=== PATIENT | male | born 1970 | race Caucasian/White ===

== ENCOUNTER 2017-02-21 16:40 | Inpatient (IN) | payer OTHER ==
[~2017-02-21] VITALS: Ht 177.8 cm; Wt 92.4 kg
[2017-02-21 16:40] VITALS: BP 118/79; PULSE 71; RESP 16; TEMP 98.1; O2SAT 96
[2017-02-21 16:50] VITALS: O2SAT 97
[2017-02-21] MEDS ORDERED: IODIXANOL 320 MG/ML 50 ML VIAL (for Rad CT) IV ONE (16:51)
[2017-02-21] MEDS ORDERED: SODIUM CHLOR 0.9% 1000 ML INJ 1,000 ML IV ONE (16:53)
[2017-02-21 17:03] LABS: AUTOMATED NEUTROPHIL # 2.3 TH/MM3 (1.8-7.7); BASOPHIL # 0.1 TH/MM3 (0-0.2); BASOPHIL % 1.1 % (0.0-2.0); EOSINOPHIL # 0.1 TH/MM3 (0-0.4); EOSINOPHIL % 1.6 % (0.0-4.0); HEMO FLAGS DIFF FINAL; LYMPH % 41.6 % (9.0-44.0); LYMPHOCYTE # 2.1 TH/MM3 (1.0-4.8); MEAN CELL VOLUME 92.1 FL (80.0-100.0); MEAN CORPUSCULAR HGB CONC 34.7 % (32.0-36.0); MONO % 11.2 % (0.0-8.0); NEUT % 44.5 % (16.0-70.0); PLATELET COUNT 216 TH/MM3 (150-450); RED BLOOD COUNT 4.77 MIL/MM3 (4.50-5.90); WHITE BLOOD COUNT 5.1 TH/MM3 (4.0-11.0)
[2017-02-21 17:07] LABS: I-STAT POTASSIUM 3.6 MMOL/L (3.5-4.9); I-STAT SODIUM 143 MMOL/L (138-146)
[2017-02-21 17:11] LABS: APTT (PATIENT) 25.8 SEC (24.3-30.1); INTERNATIONAL NORMALIZED RATIO 0.9 RATIO; PROTHROMBIN TIME - PATIENT 10.2 SEC (9.8-11.6)
--- NOTE | 2017-02-21 17:12 | RADRPT ---
EXAM DATE/TIME: 02/21/2017 16:51 [facility] COMPARISON: No previous studies available for comparison. INDICATIONS : Stroke alert. Left sided weakness, confusion. RADIATION DOSE: 49.31 CTDIvol (mGy) This report was called by Dr. Truong to Dr. Estrada at 1709 MEDICAL HISTORY : Non-responsive. SURGICAL HISTORY : Non-responsive. ENCOUNTER: Initial ACUITY: 1 day PAIN SCALE: 0/10 LOCATION: cranial TECHNIQUE: Multiple contiguous axial images were obtained of the head. Using automated exposure control and adj ustment of the mA and/or kV according to patient size, radiation dose was kept as low as reasonably a chievable to obtain optimal diagnostic quality images. FINDINGS: CEREBRUM: The ventricles are normal for age. No evidence of midline shift, mass lesion, hemorrhage or acute in farction. No extra-axial fluid collections are seen. POSTERIOR FOSSA: The cerebellum and brainstem are intact. The 4th ventricle is midline. The cerebellopontine angle i s unremarkable. EXTRACRANIAL: The visualized portion of the orbits is intact. SKULL: The calvaria is intact. No evidence of skull fracture. CONCLUSION: Normal examination. Aditya Truong MD on February 21, 2017 at 17:06 Board Certified Radiologist. This report was verified electronically.
--- NOTE | 2017-02-21 17:28 | RADRPT ---
EXAM DATE/TIME: 02/21/2017 16:51 [facility] COMPARISON: No previous studies available for comparison. INDICATIONS : Stroke alert-left sided weakness. IV CONTRAST: 50 cc Visipaque (iodixanol) IV RADIATION DOSE: 28.65 CTDIvol (mGy) ; Combined studies MEDICAL HISTORY : Non-responsive. SURGICAL HISTORY : Non-responsive. ENCOUNTER: Initial ACUITY: 1 day PAIN SCALE: Non-responsive LOCATION: Bilateral cranial TECHNIQUE: Volumetric scanning was performed using a multi-row detector CT scanner. The data was post processed with a variety of visualization algorithms including full volume maximum intensity projection, multi -planar sliding thin slab reformation, curved planar reformation, and surface rendering techniques. Using automated exposure control and adjustment of the mA and/or kV according to patient size, radiat ion dose was kept as low as reasonably achievable to obtain optimal diagnostic quality images. FINDINGS: There is excellent visualization of the major intracranial arteries out to the second-order branch ve ssels. There is no evidence for aneurysm, vessel truncation or stenosis, and no evidence for vascula r malformation. Specifically, there is no endovascular target for revascularization in the setting of acute stroke CONCLUSION: Negative exam. Findings were reported to Dr. Estrada upon interpretation Piotr Page MD on February 21, 2017 at 17:23 Board Certified Radiologist. This report was verified electronically.
[2017-02-21] MEDS ORDERED: ALTEPLASE DRIP IV ONE (17:30)
[2017-02-21] MEDS ORDERED: MISCELLANEOUS NURSING INFORMATION XX PRN (17:30)
[2017-02-21] MEDS ORDERED: SODIUM CHLORIDE 0.9% 50 ML BAG IVF ONE (17:30)
[2017-02-21] MEDS ORDERED: ALTEPLASE BOLUS 9 MG/9 ML SYR IV ONE (17:30)
--- NOTE | 2017-02-21 17:47 | PD ---
HPI Chief Complaint: Stroke Alert Time Seen by Provider: 16:53 Travel History International Travel<30 days: No Contact w/Intl Traveler<30days: No Traveled to known affect area: No History of Present Illness HPI This is a 47-year-old gentleman with history depression, homelessness, who presents as a stroke alert. The patient was last seen normal at 1600 hrs. When he arrived he was within the first hour of presentation. The patient presents with left sided facial droop, slurred speech, left upper and left lower extremity weakness/paralysis. The patient denies any previous history of stroke. He denies any trauma. He does report drinking alcohol daily but does not appear intoxicated on my examination. He is awake and appropriate other than the above findings. [facility] Social History Tobacco Use: Yes Allergies-Medications (Allergen,Severity, Reaction): Coded Allergies: No Known Allergies (Unverified , 02/21/17) Review of Systems Except as stated in HPI: all other systems reviewed are Neg General / Constitutional: No: Fever, Chills Eyes: No: Blurred Vision, Photophobia HENT: No: Headaches, Neck Pain Cardiovascular: No: Chest Pain or Discomfort, Palpitations Respiratory: No: Cough, Shortness of Breath Gastrointestinal: No: Nausea, Vomiting, Abdominal Pain Musculoskeletal: No: Weakness, Pain Neurologic: Positive: Weakness (left upper and left lower extremity), Slurred Speech, Other (left sided facial droop), No: Headache Psychiatric: Positive: Depression (history of) Physical Exam Narrative GENERAL: Well-developed well-nourished male in no acute respiratory distress. SKIN: Focused skin assessment warm/dry. HEAD: Atraumatic. Normocephalic. EYES: No scleral icterus. No injection or drainage. ENT: No nasal bleeding or discharge. Mucous membranes pink and moist. NECK: Trachea midline. No JVD. CARDIOVASCULAR: Regular rate and rhythm. No murmur appreciated. RESPIRATORY: No accessory muscle use. Clear to auscultation. Breath sounds equal bilaterally. GASTROINTESTINAL: Abdomen soft, non-tender, nondistended. MUSCULOSKELETAL: No obvious deformities. No clubbing. No cyanosis. No edema. There is a healing abrasion to his left montalvo. NEUROLOGICAL: Awake and alert. Patient with left sided facial droop. She also has 1/5 strength in the left upper extremity and 0/5 strength in the left lower extremity. He has dysarthria. He is able to answer questions. His NIH stroke scale is 15. PSYCHIATRIC: Appropriate mood and affect; insight and judgment normal. Data Data Last Documented VS Vital Signs Date Time Temp Pulse Resp B/P Pulse Ox O2 Delivery O2 Flow Rate FiO2 02/21/17 16:50 97 21 02/21/17 16:40 71 17 Room Air 02/21/17 16:40 2 Orders Diet Npo (02/21/17 Dinner) Activity Bed Rest (02/21/17 ) Electrocardiogram (02/21/17 ) I-Stat Creatinine (02/21/17 16:53) I-Stat Profile (02/21/17 16:53) Prothrombin Time / Inr (Pt) (02/21/17 16:53) Act Partial Throm Time (Ptt) (02/21/17 16:53) Complete Blood Count With Diff (02/21/17 16:53) Fibrinogen (02/21/17 16:53) Creatine Kinase (Cpk) (02/21/17 16:53) Troponin I (02/21/17 16:53) Ua Includes Microscopic (02/21/17 16:53) Drug Screen, Random Urine (02/21/17 16:53) Type And Screen (02/21/17 16:53) Ct Brain W/O Iv Contrast(Rout) (02/21/17 ) Cta Brain W Iv Contrast W 3d (02/21/17 16:53) Consult Neurology (02/21/17 ) Blood Glucose (02/21/17 16:53) Ecg Monitoring (02/21/17 16:53) Neuro Checks Q2HX12,Q4H (02/21/17 16:53) Nursing Bedside Swallow Assess .ONCE (02/21/17 16:53) Iv Access Insert/Monitor (02/21/17 16:53) NPO (02/21/17 16:53) Oximetry (02/21/17 16:53) Oxygen Administration (02/21/17 16:53) Sodium Chlor 0.9% 1000 Ml Inj (Ns 1000 M (02/21/17 16:53) Resp Oxygen Sanjay C Titrat 1-4 L (02/21/17 16:53) Cath For Specimen (02/21/17 16:53) Cta Neck W Iv Contrast W 3d (02/21/17 ) ^ Call Pharmacy (02/21/17 17:24) Nih Stroke Scale - Nihss .ONCE (02/21/17 17:24) Urinary Catheter Management CHINO.Q8H (02/21/17 17:24) Urinary Catheter Insert/Apply (02/21/17 17:24) Anticoagulant Alert (02/21/17 17:24) ^ Post Infusion Restrictions (02/21/17 17:24) ^ Medication Alert (02/21/17 17:24) Vital Signs (Adult) .As directed (02/21/17 17:24) Notify Dr: Blood Pressure (02/21/17 17:24) ^ Medication Alert (02/21/17 17:24) Alteplase Bolus (Activase Bolus) (02/21/17 17:30) Alteplase Drip (Activase Drip) (02/21/17 17:30) Sodium Chloride 0.9% Inj (Ns Inj) (02/21/17 17:30) [facility] Nursing Information (02/21/17 17:30) Resp Oxygen Sanjay C Titrat 1-4 L (02/21/17 ) Labs Laboratory Tests Test 02/21/17 16:45 White Blood Count 5.1 TH/MM3 Red Blood Count 4.77 MIL/MM3 Hemoglobin 15.3 GM/DL Bedside Hemoglobin 14.6 G/DL Hematocrit 44.0 % Bedside Hematocrit 43.0 % Mean Corpuscular Volume 92.1 FL Mean Corpuscular Hemoglobin 32.0 PG Mean Corpuscular Hemoglobin 34.7 % Concent Red Cell Distribution Width 14.0 % Platelet Count 216 TH/MM3 Mean Platelet Volume 6.2 FL Neutrophils (%) (Auto) 44.5 % Lymphocytes (%) (Auto) 41.6 % Monocytes (%) (Auto) 11.2 % Eosinophils (%) (Auto) 1.6 % Basophils (%) (Auto) 1.1 % Neutrophils # (Auto) 2.3 TH/MM3 Lymphocytes # (Auto) 2.1 TH/MM3 Monocytes # (Auto) 0.6 TH/MM3 Eosinophils # (Auto) 0.1 TH/MM3 Basophils # (Auto) 0.1 TH/MM3 CBC Comment DIFF FINAL Differential Comment Prothrombin Time 10.2 SEC Prothromb Time International 0.9 RATIO Ratio Activated Partial 25.8 SEC Thromboplast Time Fibrinogen 216 mg/dL Bedside Sodium 143 MMOL/L Bedside Potassium 3.6 MMOL/L Bedside Chloride 108 MMOL/L Bedside Blood Urea Nitrogen 7 MG/DL Bedside Creatinine 1.0 MG/DL Bedside Glucose 82 MG/DL [facility] Medical Screen Exam Complete: Yes Emergency Medical Condition: Yes Differential Diagnosis CVA versus TIA versus metabolic derangement versus traumatic Narrative Course 47-year-old male who presents after having an acute CVA. The patient had a stroke scale of 15 with slurred speech left sided facial droop left sided upper and lower extremity weakness. The patient meets criteria for TPA administration. After obtaining verbal consent, TPA administration was initiated. The case was discussed with Dr. Miller, on-call neurologist, who agreed if the CT scan was negative and his INR was appropriate, he was a candidate for TPA. The case was also discussed with Dr. cartagena who will be the admitting poll watcher. Critical Care Narrative Aggregate critical care time was 45 minutes. Time to perform other separately billable procedures was not included in the critical care time. My time did not include minutes spent treating any other patients simultaneously or on activities that did not directly contribute to the patient's treatment. The services I provided to this patient were to treat and/or prevent clinically significant deterioration that could result in: I provided critical care services requiring my management, as noted below: Chart data review, documentation time, medication orders and management, vital sign assessments/reviewing monitor data, ordering and reviewing lab tests, ordering and interpreting/reviewing x-rays and diagnostic studies, care of the patient and discussion of the patient with the admitting physicians. Stroke Alert NIHSS NIH Stroke Scale Result: 15 NIHSS Time Completed: 16:40 Procedures Procedure Narrative After discussion with the patient about the use of TPA and acute stroke, the risks and benefits were discussed. The patient had no contraindications, the patient agreed to TPA menstruation. He was made aware of the competitions including hemorrhage and . He stated he still wished to have the TPA despite the risks. Diagnosis Diagnosis: Primary Impression: Acute CVA (cerebrovascular accident) Additional Impressions: Depression History of alcohol abuse Javed Estrada MD February 21, 2017 17:47
--- NOTE | 2017-02-21 17:49 | RADRPT ---
EXAM DATE/TIME: 02/21/2017 16:51 [facility] COMPARISON: No previous studies available for comparison. INDICATIONS : Stroke alert, left sided weakness. IV CONTRAST: 50 cc Visipaque (iodixanol) IV RADIATION DOSE: 28.65 CTDIvol (mGy) ; Combined studies MEDICAL HISTORY : Non-responsive. SURGICAL HISTORY : Non-responsive. ENCOUNTER: Initial ACUITY: 1 day PAIN SCALE: Non-responsive LOCATION: Bilateral cranial Elevated flow velocities and ICA/CCA ratios have been found to correlate with increased degrees of vessel stenosis, calculated as percentage of diameter relative to a normal segment of distal ICA/CCA. TECHNIQUE: Volumetric scanning was performed using a multirow detector CT scanner. The data was post processed with a variety of visualization algorithms including full-volume maximum intensity projection, multip lanar sliding thin-slab reformation, curved-planar reformation, and surface-rendering techniques. Us ing automated exposure control and adjustment of the mA and/or kV according to patient size, radiatio n dose was kept as low as reasonably achievable to obtain optimal diagnostic quality images. FINDINGS: AORTIC ARCH: There is a three-vessel origin of the great vessels from the aorta. No evidence of ostial narrowing. RIGHT CAROTID: The common carotid artery is intact. The carotid bulb has a normal configuration without ulceration o r narrowing. The internal carotid artery lumen is smooth without stenosis. The external carotid miranda ry is intact. LEFT CAROTID: The common carotid artery is intact. The carotid bulb has a normal configuration without ulceration or narrowing. The internal carotid artery lumen is smooth without stenosis. The external carotid ar payton is intact. VERTEBRALS: Patent bilaterally, left side dominant CONCLUSION: Negative Piotr Page MD on February 21, 2017 at 17:46 Board Certified Radiologist. This report was verified electronically.
[2017-02-21] MEDS ORDERED: SENNOSIDES 8.6 MG TAB PO PRN (18:00)
[2017-02-21] MEDS: ARTIFICIAL TEARS OPTH SOLN 15 ML BTL EACH EYE SCH (18:00)
[2017-02-21] MEDS ORDERED: BISACODYL 10 MG SUPP RECTAL PRN (18:00)
[2017-02-21] MEDS ORDERED: LABETALOL HCL 100 MG/20 ML VIAL IV PRN (18:00)
[2017-02-21] MEDS ORDERED: MAGNESIUM HYDROXIDE SUSP 30 ML CUP PO PRN (18:00)
[2017-02-21] MEDS ORDERED: LABETALOL HCL 100 MG/20 ML VIAL IV PUSH PRN (18:00)
[2017-02-21] MEDS ORDERED: LORazepam 2 MG/ML VIAL IV PUSH PRN ×3 (18:00)
[2017-02-21] MEDS ORDERED: MISCELLANEOUS NURSING INFORMATION XX SCH (18:00)
[2017-02-21] MEDS ORDERED: hydrALAZINE HCL 20 MG/ML VIAL IV PUSH PRN (18:00)
[2017-02-21] MEDS ORDERED: LACTULOSE SYRUP 20 GM/30 ML CUP PO PRN (18:00)
[2017-02-21] MEDS ORDERED: SODIUM CHLORIDE 0.9% FLUSH 10 ML FLUSH IV FLUSH PRN (18:00)
[2017-02-21] MEDS ORDERED: CHLORHEXIDINE GLUCONATE 2 % 1 PACK (2 CLOTHS) TOP PRN (18:00)
[2017-02-21] MEDS ORDERED: LORazepam 1 MG TAB PO PRN (18:00)
[2017-02-21] MEDS ORDERED: ACETAMINOPHEN 325 MG TAB PO PRN (18:00)
[2017-02-21] MEDS ORDERED: RESP: ALBUTEROL 2.5 MG/3 ML NEB (PRN) INH (18:00)
[2017-02-21] MEDS ORDERED: LORazepam 2 MG TAB PO PRN (18:00)
[2017-02-21] MEDS ORDERED: NITROGLYCERIN 2% OINT 1 GM PACKET TOPICAL PRN (18:00)
[2017-02-21] MEDS ORDERED: FLUMAZENIL 0.5 MG/5 ML VIAL IV PUSH PRN (18:00)
--- NOTE | 2017-02-21 18:00 | HHI.HP ---
[facility] Service Critical Care Medicine Primary Care Physician Unknown Admission Diagnosis Acute CVA, depression, alcohol abuse, Diagnosis: (1) Acute CVA (cerebrovascular accident) Diagnosis: Principal (2) History of alcohol abuse Diagnosis: Principal (3) Depression Chief Complaint: Left sided weakness Travel History International Travel<30 Days: No Contact w/Intl Traveler <30 Da: No Traveled to Known Affected Are: No History of Present Illness 47-year-old male. Date of admission 02/21/2017. Past medical history includes depression and EtOH abuse. Patient originally injured library at 1550 today to skip the heat. Was noticed to have at 1600 left facial droop and left upper and lower extremity weakness with dysarthria and dysphagia. Patient was transferred to [facility] for stroke alert was notified. Initial NIH score was 15 with deficits with facial droop, inattention, sensory inattention, left upper and lower extremity weakness, dysarthria and dysphagia. CT head/CTA head and neck revealed no acute intracranial findings. Patient was given 8.1 mg alteplase bolus followed by 72.9 mg to complete therapy. His symptoms are slowly resolving in the ED. We are asked to admit. Review of Systems Constitutional: COMPLAINS OF: Dizziness, DENIES: Weight gain, Weight loss, Chills Endocrine: DENIES: Polydipsia, Polyuria Eyes: COMPLAINS OF: Blurred vision, DENIES: Double Vision Ears, nose, mouth, throat: DENIES: Hearing loss, Running Nose, Epistaxis Respiratory: DENIES: Apneas Cardiovascular: DENIES: Chest pain, Claudication Gastrointestinal: COMPLAINS OF: Difficulty Swallowing, DENIES: Constipation, Anorexia Genitourinary: DENIES: Urgency, Hematuria Musculoskeletal: DENIES: Joint pain, Back pain Integumentary: DENIES: Abnormal pigmentation Hematologic/lymphatic: DENIES: Bruising Immunologic/allergic: DENIES: Eczema Neurologic: DENIES: Abnormal gait Psychiatric: COMPLAINS OF: Confusion, Depression, DENIES: Anxiety, Agitation Past Family Social History Allergies: Coded Allergies: No Known Allergies (Unverified , 02/21/17) Past Medical History Depression Bipolar disorder EtOH use Past Surgical History Right thenar tendon Reported Medications Celexa unknown dosage Active Ordered Medications Reviewed in EMR Family History Aunt with diabetes mellitus. Social History 12 bottles of wine daily. Occasional cigarette use but not daily. No IV drug use. Physical Exam Vital Signs Vital Signs Date Time Temp Pulse Resp B/P Pulse Ox O2 Delivery O2 Flow Rate FiO2 02/21/17 16:50 97 21 02/21/17 16:50 97 21 02/21/17 16:40 71 17 97 Room Air 02/21/17 16:40 99 Nasal Cannula 2 Physical Exam GENERAL: 47-year-old male, resting in bed in no acute distress SKIN: Warm and dry. No rash HEAD: Atraumatic. Normocephalic. EYES: Pupils equal and round about 3 mm bilaterally and reactive. No scleral icterus. No injection or drainage. ENT: No nasal bleeding or discharge. Mucous membranes pink and moist. NECK: Trachea midline. No JVD. CARDIOVASCULAR: Regular rate and rhythm. S1, S2. No S4. Without murmur RESPIRATORY: No accessory muscle use. Clear to auscultation. Breath sounds equal bilaterally. GASTROINTESTINAL: Abdomen soft, non-tender, nondistended. Hepatic and splenic margins not palpable. MUSCULOSKELETAL: Extremities without significant peripheral edema. No obvious deformities. NEUROLOGICAL: Awake and alert. Left facial droop. Strength is 2 out of 5 left upper and lower extremity. 5 out of 5 in the right upper and lower extremity. Sensory inattention left-sided. Dysarthria and dysphagia improving. Laboratory Laboratory Tests Test 02/21/17 16:45 White Blood Count 5.1 Red Blood Count 4.77 Hemoglobin 15.3 Bedside Hemoglobin 14.6 Hematocrit 44.0 Bedside Hematocrit 43.0 Mean Corpuscular Volume 92.1 Mean Corpuscular Hemoglobin 32.0 Mean Corpuscular Hemoglobin 34.7 Concent Red Cell Distribution Width 14.0 Platelet Count 216 Mean Platelet Volume 6.2 Neutrophils (%) (Auto) 44.5 Lymphocytes (%) (Auto) 41.6 Monocytes (%) (Auto) 11.2 Eosinophils (%) (Auto) 1.6 Basophils (%) (Auto) 1.1 Neutrophils # (Auto) 2.3 Lymphocytes # (Auto) 2.1 Monocytes # (Auto) 0.6 Eosinophils # (Auto) 0.1 Basophils # (Auto) 0.1 CBC Comment DIFF FINAL Differential Comment Prothrombin Time 10.2 Prothromb Time International 0.9 Ratio Activated Partial 25.8 Thromboplast Time Fibrinogen 216 Bedside Sodium 143 Bedside Potassium 3.6 Bedside Chloride 108 Bedside Blood Urea Nitrogen 7 Bedside Creatinine 1.0 Bedside Glucose 82 Blood Type O NEGATIVE Antibody Screen NEGATIVE Blood Bank Comment Result Diagram: 02/21/17 1645 Imaging Last Impressions Head CTA 02/21/17 1653 Signed Impressions: Service Date/Time: Tuesday, February 21, 2017 16:51 - CONCLUSION: Negative exam. Findings were reported to Dr. Estrada upon interpretation Piotr Page MD Neck CTA 02/21/17 0000 Signed Impressions: Service Date/Time: Tuesday, February 21, 2017 16:51 - CONCLUSION: Negative Piotr Page MD Head CT 02/21/17 0000 Signed Impressions: Service Date/Time: Tuesday, February 21, 2017 16:51 - CONCLUSION: Normal examination. Aditya Truong MD Assessment and Plan Assessment and Plan Neuro/Psych: CVA EtOH CT head/CTA head and neck revealed no acute intracranial finding/stenosis or thrombus amenable to intervention Received 8.1 milligrams alteplase followed by 72.9 mg over one hour. Dr. Miller/neurology following Repeat CT 24 hours post alteplase infusion Neurochecks every hour Head of bed 0 12 hours. CIWA protocol initiated - okay with neurology Thiamine, folate/multivitamin daily 3 days Monitor for DTs CV: As needed labetalol, hydralazine and Nitropaste to keep systolic blood pressure less than 180 diastolic blood pressure less than 105 2-D echocardiogram ordered Lipid panel ordered for a.m. Resp: Tobaccoism Nasal cannula to maintain saturations greater than equal to 92% Incentive spirometry while awake As needed albuterol therapy every 2 hours as needed Tobacco cessation education provided GI: Currently nothing by mouth Protonix for GI prophylaxis Alanna-Colace twice a day for bowel regimen : Logan catheter currently not indicated Endo: Hemoglobin A1c ordered Sliding scale insulin with Accu-Cheks every 6 hours to maintain euglycemia/low regimen Renal: Creatinine currently within normal limits On normal saline at 84 cc an hour Accurate I's and O's Monitor urine output Heme: Hemoglobin currently within normal limits. No contraindications to alteplase ID: Monitor for infection FEN: Replace electrolytes as clinically indicated MSK: PT/OT evaluate and treat Access - Utilize peripheral IV. Central and indicated Prophylaxis - GI - Protonix - DVT - SCD/pharmacological prophylaxis contraindicated status post alteplase 24 hours Level III admission Code Status Full code Discussed Condition With Dr. Estrada/ED physician and Dr. Miller/neurology. Patient. Care plan discussed and all questions answered. Problem Qualifiers (1) Depression: Qualified Code: F32.9 - Depression, unspecified depression type Chris Barry MD February 21, 2017 18:00
[2017-02-21 18:01] LABS: CREATINE KINASE 273 U/L (39-308)
[2017-02-21 18:20] VITALS: BP 124/86; PULSE 68; RESP 15; O2SAT 96
--- NOTE | 2017-02-21 18:35 | MB ---
cc: ALBA ANGULO DATE OF CONSULTATION 02/21/17 REASON FOR CONSULTATION Stroke alert HISTORY OF PRESENT ILLNESS Mr. Jacob is a 47-year-old male with past medical history of depression, homelessness presented to the [facility] as a stroke alert. The patient was last seen normal at 14:00 hours. He arrived to the hospital within the first hour of presentation with complaints of "feeling weak, left-sided face droop, slurred speech, left upper and lower extremity weakness." The patient denies any previous history of TIA or stroke. No history of stroke in the family. Currently on no medications. He reports drinking alcohol everyday. REVIEW OF SYSTEMS A 12-point review of systems is negative except for what is stated in the HPI. PAST MEDICAL HISTORY Unremarkable. PAST SURGICAL HISTORY Unremarkable. ALLERGIES No known allergies. SOCIAL HISTORY Alcoholic, homeless and positive for tobacco. PHYSICAL EXAMINATION GENERAL: Alert and awake, oriented, in no acute distress HEENT: Atraumatic, normocephalic. Congested eyes. Intact hearing and intact vision. NECK: Trachea in the midline. No JVD. No carotid bruit. No signs of meningeal irritation. CARDIOVASCULAR: Regular rate and rhythm. RESPIRATORY: Clear to auscultation. No wheezes GASTROINTESTINAL: Soft abdomen, nontender. MUSCULOSKELETAL: No edema. No swelling. Left-sided weakness. Healing abrasion on his left montalvo. NEUROLOGICAL: Awake, alert, oriented to time, person and place. Dysarthria, left facial palsy, mild nystagmus to the right. Left visual field defect. Left upper and lower extremity were 2/5 shoulder abduction to elbow extension, 1/5 wrist extension, elbow flexion 3/5, left hip flexion 1/5, left knee extension 2/5, foot extension 3/5, foot flexion 4-/5, right upper and lower extremity 5/5. Reflexes 2+ bilateral symmetrical. Plantars left upgoing. Positive decreased sensation over the entire left side face. Positive sensory extinction. Initially, the NIH stroke scale as per RN is 15. PSYCH: Appropriate mood and behavior. LABORATORY DATA Normal biochemistry, glucose. INR is 0.9, white blood cells 5.1. IMAGING STUDIES Head CT scan is negative for an acute intracranial abnormality. DIAGNOSTIC IMPRESSION 1. Stroke alert. 2. Right hemisphere ischemic stroke. 3. Alcohol intoxication. 4. Tobacco abuse. - The patient initial NIH stroke scale was 15. Head CT scan without contrast was negative. There was no contraindication to IV TPA hence I recommended to give IV TPA. Discussed the case with Dr. Estrada, ED physician. Upon my evaluation after a few minutes of receiving the IV TPA NIH stroke scale was 9; initially this was 15. PLAN - Admit to neuro ICU. - Neuro checks q. one hourly. - Hold anticoagulation antiplatelets for the next 24 hours. - Repeat CT head after 24 hours - CTA head and CTA neck. - Maintain blood pressure below 180/105 for the next 24 hours. - DVT prophylaxis SCDs, - CIWA protocol. Alba Angulo MD RGO/[id number] /5:52 PM /6:12 PM LISANDRA
[2017-02-21] MEDS ORDERED: CELE20TA PO (18:50)
[2017-02-21] MEDS: SODIUM CHLOR 0.9% 1000 ML INJ 1,000 ML IV SCH (18:52)
[2017-02-21] MEDS: ONDANSETRON HCL 4 MG/2 ML VIAL IV PRN (18:53)
[2017-02-21] MEDS ORDERED: niCARdipine INJ 25 MG in SODIUM CHLOR 0.9% 250 ML INJ 250 ML IV SCH (19:00)
[2017-02-21 19:39] LABS: AMPHETAMINE, URINE NEG (NEG); BARBITURATES, URINE NEG (NEG); COCAINE, URINE NEG (NEG)
[2017-02-21 19:57] LABS: BLOOD, URINE NEG (NEG); GLUCOSE,URINE NEG (NEG); KETONE, URINE TRACE mg/dL (NEG); NITRITE,URINE NEG (NEG); URINE COLOR YELLOW (YELLW/STRAW)
[2017-02-21 20:00] VITALS: BP 128/80; PULSE 68; RESP 18; TEMP 98.4; O2SAT 100
[2017-02-21 20:45] VITALS: O2SAT 98
[2017-02-21] MEDS: PRAVASTATIN SOD 40 MG TAB PO SCH (21:00)
[2017-02-21] MEDS: SODIUM CHLORIDE 0.9% FLUSH 10 ML FLUSH IV FLUSH SCH (21:00)
[2017-02-21] MEDS: DOCUSATE SODIUM 50 MG/SENNA 8.6 MG TAB PO SCH (21:00)
[2017-02-21] MEDS: MULTIVITAMIN INJ 10 ML, THIAMINE INJ 100 MG, FOLIC ACID INJ 1 MG in SODIUM CHLORID 0.9%... IV SCH (21:34)
[2017-02-21 22:00] VITALS: PULSE 65
[2017-02-22] VITALS (12 sets, daily range): BP systolic 111–131; BP diastolic 57–79; PULSE 56–82; RESP 18–23; TEMP 97–98.8; O2SAT 92–97
[2017-02-22] MEDS: ONDANSETRON HCL 4 MG/2 ML VIAL IV PRN ×2 (02:04→20:20)
[2017-02-22] MEDS: CHLORHEXIDINE GLUCONATE 2 % 1 PACK (2 CLOTHS) TOP SCH (03:37)
[2017-02-22] MEDS: LORazepam 2 MG/ML VIAL IV PUSH PRN ×3 (03:58→22:53)
[2017-02-22] MEDS: SODIUM CHLOR 0.9% 1000 ML INJ 1,000 ML IV SCH ×4 (05:42→23:54)
[2017-02-22] MEDS: ASPIRIN 325 MG TAB PO SCH ×2 (07:00→09:00)
[2017-02-22] MEDS: PANTOPRAZOLE SODIUM 40 MG VIAL IV SCH (09:00)
[2017-02-22] MEDS: DOCUSATE SODIUM 50 MG/SENNA 8.6 MG TAB PO SCH ×2 (09:00→20:14)
[2017-02-22] MEDS: ARTIFICIAL TEARS OPTH SOLN 15 ML BTL EACH EYE SCH ×3 (09:00→18:00)
[2017-02-22] MEDS: SODIUM CHLORIDE 0.9% FLUSH 10 ML FLUSH IV FLUSH SCH ×2 (09:00→20:14)
--- NOTE | 2017-02-22 10:50 | EC ---
Study Study Date:02/22/2017 STUDY CONCLUSIONS SUMMARY LEFT VENTRICLE: The cavity size was normal. Wall thickness was at the upper limits of normal. Systolic function was normal. The estimated ejection fraction was in the range of 55% to 60%. Wall motion was normal; there were no regional wall motion abnormalities. If LV function is below 40, please consider prescribing an ACEI or ARB or document rationale for non-use. PROCEDURE DATA STUDY STATUS: Elective. Procedure: Transthoracic echocardiography. Image quality was fair. Scanning was performed from the parasternal, apical, and subcostal acoustic windows. Study completion: The patient tolerated the procedure well. Transthoracic echocardiography. M-mode, complete 2D, complete spectral Doppler, and color Doppler. Patient status: Inpatient. CARDIAC ANATOMY LEFT VENTRICLE: The cavity size was normal. Wall thickness was at the upper limits of normal. Systolic function was normal. The estimated ejection fraction was in the range of 55% to 60%. Wall motion was normal; there were no regional wall motion abnormalities. AORTIC VALVE: Not well visualized. Normal thickness leaflets. Doppler: Transvalvular velocity was within the normal range. There was no stenosis. No regurgitation. AORTA: Aortic root: The aortic root was normal in size. MITRAL VALVE: Structurally normal valve. Doppler: Transvalvular velocity was within the normal range. There was no evidence for stenosis. Trace regurgitation. LEFT ATRIUM: The atrium was normal in size. RIGHT VENTRICLE: The cavity size was normal. Wall thickness was normal. PULMONIC VALVE: Poorly visualized. Doppler: Transvalvular velocity was within the normal range. There was no evidence for stenosis. No regurgitation. TRICUSPID VALVE: Poorly visualized. Structurally normal valve. Doppler: Transvalvular velocity was within the normal range. Trace regurgitation. PULMONARY ARTERY: The main pulmonary artery was normal-sized. Systolic pressure was within the normal range. RIGHT ATRIUM: The atrium was normal in size. PERICARDIUM: There was no pericardial effusion. SYSTEMIC VEINS: Inferior vena cava: The vessel was normal in size. BASIC MEASUREMENTS ADULT NORMAL Left ventricle LV internal dimension, ED, chordal level, 49.5 mm 43-52 PLAX LV internal dimension, ES, chordal level, 37.6 mm 23-38 PLAX Fractional shortening, chordal level, PLAX *24 % >29 LV posterior wall thickness, ED 6.95 mm IVS/LVPW ratio, ED *1.6 <1.3 Ventricular septum Septal thickness, ED 11.1 mm Aortic valve Leaflet separation 25 mm 15-26 Left atrium Anterior-posterior dimension 31 mm Right ventricle RV internal dimension, ED, PLAX 19 mm 19-38 BASIC MEASUREMENTS ADULT NORMAL Aortic valve Leaflet separation 25 mm 15-26 Aorta Root diameter, ED 35 mm 20-37 DOPPLER MEASUREMENTS ADULT NORMAL Aortic valve Peak velocity, S 134 cm/s Mitral valve Peak E-wave velocity 63.2 cm/s Peak A-wave velocity 51.8 cm/s Peak E/A ratio 1.2 Tricuspid valve Regurgitant peak velocity 192 cm/s Peak RV-RA gradient, S 15 mm Hg Maximal regurgitant velocity 192 cm/s LEGEND: Mean values are shown as u=mean value. Asterisk (*) edwards values outside specified normal range. Prepared and signed by Karlos Subramanian [id number]
--- NOTE | 2017-02-22 10:53 | HHI.PR ---
Subjective Remarks sr Objective Vital Signs Date Time Temp Pulse Resp B/P Pulse Ox O2 Delivery O2 Flow Rate FiO2 02/22/17 07:00 97 Nasal Cannula 3.00 02/22/17 06:00 65 02/22/17 04:00 98.2 66 21 111/71 95 02/22/17 04:00 66 02/22/17 02:00 64 02/22/17 00:00 68 02/22/17 00:00 98.4 68 18 116/66 96 02/21/17 22:00 65 02/21/17 20:45 98 Nasal Cannula 2.00 02/21/17 20:00 98.4 68 18 128/80 100 02/21/17 20:00 68 02/21/17 18:20 68 15 124/86 96 Room Air 02/21/17 16:50 97 21 02/21/17 16:50 97 21 02/21/17 16:40 71 17 97 Room Air 02/21/17 16:40 98.1 71 16 118/79 96 02/21/17 16:40 99 Nasal Cannula 2 I/O 02/21/17 02/21/17 02/21/17 02/22/17 02/22/17 02/22/17 07:00 15:00 23:00 07:00 15:00 23:00 Intake Total 482 ml 761 ml Output Total 350 ml Balance 482 ml 411 ml Intake IV Total 482 ml 761 ml Output Urine Total 350 ml # Voids 0 1 # Bowel Movements 0 0 Result Diagram: 02/21/17 1645 Other Results ctax2 nl ct neg Objective Remarks vff face sym some miold diffuse left arma dn leg weak 4+ 5/5 r Assessment and Plan Assessment and Plan imp ? small cva check mri ldl asa for now oob ok if mri neg Reuben Orozco MD February 22, 2017 10:53
--- NOTE | 2017-02-22 11:38 | HHI.CCPN ---
Subjective Remarks/Hospital Course 47-year-old male. Date of admission 02/21/2017. Past medical history includes depression and EtOH abuse. Patient originally injured library at 1550 today to skip the heat. Was noticed to have at 1600 left facial droop and left upper and lower extremity weakness with dysarthria and dysphagia. Patient was transferred to [facility] for stroke alert was notified. Initial NIH score was 15 with deficits with facial droop, inattention, sensory inattention, left upper and lower extremity weakness, dysarthria and dysphagia. CT head/CTA head and neck revealed no acute intracranial findings. Patient was given 8.1 mg alteplase bolus followed by 72.9 mg to complete therapy. His symptoms are slowly resolving in the ED. We are asked to admit. 02/22: Cooperative, alert. Mild persistent left side weakness. Protects airway. BP control acceptable. Objective Vital Signs Date Time Temp Pulse Resp B/P Pulse Ox O2 Delivery O2 Flow Rate FiO2 02/22/17 07:00 97 Nasal Cannula 3.00 02/22/17 06:00 65 02/22/17 04:00 98.2 21 111/71 02/21/17 16:50 21 Intake and Output 02/21/17 02/21/17 02/22/17 08:00 16:00 00:00 Intake Total 482 ml Balance 482 ml Result Diagram: 02/21/17 1645 Imaging Last Impressions Head CTA 02/21/17 1653 Signed Impressions: Service Date/Time: Tuesday, February 21, 2017 16:51 - CONCLUSION: Negative exam. Findings were reported to Dr. Estrada upon interpretation Piotr Page MD Neck CTA 02/21/17 0000 Signed Impressions: Service Date/Time: Tuesday, February 21, 2017 16:51 - CONCLUSION: Negative Piotr Page MD Head CT 02/21/17 0000 Signed Impressions: Service Date/Time: Tuesday, February 21, 2017 16:51 - CONCLUSION: Normal examination. Aditya Truong MD Objective Remarks GENERAL: 47-year-old male, resting in bed. SKIN: Warm and dry. No rash HEAD: Atraumatic. Normocephalic. EYES: Pupils equal and round about 2 mm bilaterally and reactive. ENT: No nasal bleeding or discharge. NECK: Trachea midline. Airway patent. CARDIOVASCULAR: Regular rate and rhythm. S1, S2. No S4. Without murmur RESPIRATORY: No accessory muscle use. Clear, no wheezes. Breath sounds equal bilaterally. GASTROINTESTINAL: Abdomen soft, non-tender, nondistended. BS active. MUSCULOSKELETAL: Extremities without significant peripheral edema. No obvious deformities. Well perfused. NEUROLOGICAL: Awake and alert. Strength is 3 out of 5 left upper and lower extremity. 5 out of 5 in the right upper and lower extremity. Improved speech difficulty. A/P Assessment and Plan Neuro/Psych: CVA EtOH CT head/CTA head and neck revealed no acute intracranial finding/stenosis or thrombus amenable to intervention Received 8.1 milligrams alteplase followed by 72.9 mg over one hour. Dr. Miller/neurology following Repeat CT 24 hours post alteplase infusion Neurochecks every hour Head of bed 0 12 hours. [facility] protocol initiated - okay with neurology Thiamine, folate/multivitamin daily 3 days Monitor for DTs CV: As needed labetalol, hydralazine and Nitropaste to keep systolic blood pressure less than 180 diastolic blood pressure less than 105 2-D echocardiogram ordered Lipid panel ordered for a.m. Resp: Tobaccoism Nasal cannula to maintain saturations greater than equal to 92% Incentive spirometry while awake As needed albuterol therapy every 2 hours as needed Tobacco cessation education provided GI: Currently nothing by mouth Protonix for GI prophylaxis Alanna-Colace twice a day for bowel regimen : Logan catheter currently not indicated Endo: Hemoglobin A1c ordered Sliding scale insulin with Accu-Cheks every 6 hours to maintain euglycemia/low regimen Renal: Creatinine currently within normal limits On normal saline at 84 cc an hour Accurate I's and O's Monitor urine output Heme: Hemoglobin currently within normal limits. No contraindications to alteplase ID: Monitor for infection FEN: Replace electrolytes as clinically indicated MSK: PT/OT evaluate and treat Access - Utilize peripheral IV. Central and indicated Prophylaxis - GI - Protonix - DVT - SCD/pharmacological prophylaxis contraindicated status post alteplase 24 hours Overall impression: Improved left side function s/p ischemic stroke following tPA. MRI today. Javed Sr MD February 22, 2017 11:38
[2017-02-22] MEDS ORDERED: GADODIAMIDE PF 287 MG/ML 20 ML VIAL (for RAD MRI) IV ONE (13:11)
[2017-02-22 13:28] LABS: AUTOMATED NEUTROPHIL # 3.2 TH/MM3 (1.8-7.7); BASOPHIL % 0.9 % (0.0-2.0); EOSINOPHIL % 0.7 % (0.0-4.0); HEMATOCRIT 41.7 % (39.0-51.0); HEMO FLAGS DIFF FINAL; LYMPH % 28.2 % (9.0-44.0); LYMPHOCYTE # 1.5 TH/MM3 (1.0-4.8); MEAN CORPUSCULAR HEMOGLOBIN 32.1 PG (27.0-34.0); MEAN CORPUSCULAR HGB CONC 35.3 % (32.0-36.0); MONO % 8.1 % (0.0-8.0); NEUT % 62.1 % (16.0-70.0); PLATELET COUNT 201 TH/MM3 (150-450); RED BLOOD COUNT 4.58 MIL/MM3 (4.50-5.90); RED CELL DISTRIBUTION WIDTH 13.6 % (11.6-17.2); WHITE BLOOD COUNT 5.2 TH/MM3 (4.0-11.0)
--- NOTE | 2017-02-22 13:38 | RADRPT ---
EXAM DATE/TIME: 02/22/2017 13:00 [facility] COMPARISON: CT BRAIN W/O CONTRAST, February 21, 2017, 16:51. INDICATIONS : Left sided weakness. CONTRAST: 18 cc Omniscan (gadodiamide) IV MEDICAL HISTORY : None. SURGICAL HISTORY : None. ENCOUNTER: Initial ACUITY: 2 day PAIN SCORE: 0/10 LOCATION: cranial TECHNIQUE: Multiplanar, multisequence MRI of the brain was performed both prior to and following the administrat ion of paramagnetic contrast. FINDINGS: CEREBRUM: The ventricles are normal for age. No evidence of midline shift, mass lesion, hemorrhage or acute in farction. No extraaxial fluid collections are seen. The pituitary gland and suprasellar cistern are normal in configuration. WHITE MATTER: No significant signal abnormalities are seen in the white matter. POSTERIOR FOSSA: The cerebellum and brainstem demonstrate no abnormality. The 4th ventricle is midline. The cerebello pontine angle is unremarkable. The cerebellar tonsils are normal in position. DIFFUSION IMAGING: No focal areas of restricted diffusion are seen. No evidence of acute infarction. EXTRACRANIAL: The visualized portions of the orbits and paranasal sinuses are unremarkable. POST-CONTRAST: No abnormal areas of parenchymal or dural enhancement. No evidence of blood-brain barrier breakdown. CONCLUSION: Negative brain MRI with and without contrast. There are no findings to indicate recent ischemia. Piotr Blevins MD on February 22, 2017 at 13:32 Board Certified Radiologist. This report was verified electronically.
[2017-02-22 14:08] LABS: ALKALINE PHOSPHATASE 116 U/L (45-117); ALT (GPT) 51 U/L (12-78); ANION GAP 11 MEQ/L (5-15); BICARBONATE 24.7 MEQ/L (21.0-32.0); BLOOD UREA NITROGEN 9 MG/DL (7-18); CHLORIDE 102 MEQ/L (98-107); FREE T4 1.14 NG/DL (0.76-1.46); GLOMERULAR FILTRATION RATE 90 ML/MIN (>89); HDL CHOLESTEROL 77.2 MG/DL (40.0-60.0); LDL CHOLESTEROL 118 MG/DL (0-99); SODIUM (NA) 138 MEQ/L (136-145); TOTAL BILIRUBIN ADULT 0.8 MG/DL (0.2-1.0)
[2017-02-22 14:10] LABS: AST (GOT) 65 U/L (15-37); MAGNESIUM 1.7 MG/DL (1.5-2.5); POTASSIUM 6.1 MEQ/L (3.5-5.1)
--- NOTE | 2017-02-22 16:18 | EKG ---
Date Performed: 02/21/2017 Time Performed: 16:43:46 PTAGE: 47 years EKG: Right axis deviation Low limb lead voltage NO PREVIOUS TRACING DOCTOR: Nathanael Smith Interpretating Date/Time 02/22/2017 16:16:37
[2017-02-22] MEDS: MULTIVITAMIN INJ 10 ML, THIAMINE INJ 100 MG, FOLIC ACID INJ 1 MG in SODIUM CHLORID 0.9%... IV SCH (20:11)
[2017-02-22] MEDS: PRAVASTATIN SOD 40 MG TAB PO SCH (20:14)
[2017-02-23] VITALS (7 sets, daily range): BP systolic 103–180; BP diastolic 58–86; PULSE 57–85; RESP 17–26; TEMP 96.6–98.3; O2SAT 93–100
[2017-02-23] MEDS: CHLORHEXIDINE GLUCONATE 2 % 1 PACK (2 CLOTHS) TOP SCH (03:18)
[2017-02-23] MEDS: SODIUM CHLOR 0.9% 1000 ML INJ 1,000 ML IV SCH ×2 (04:36→13:27)
[2017-02-23] MEDS: ARTIFICIAL TEARS OPTH SOLN 15 ML BTL EACH EYE SCH ×3 (09:00→18:00)
[2017-02-23] MEDS: DOCUSATE SODIUM 50 MG/SENNA 8.6 MG TAB PO SCH ×2 (09:21→20:18)
[2017-02-23] MEDS: ASPIRIN 325 MG TAB PO SCH (09:21)
[2017-02-23] MEDS: PANTOPRAZOLE SODIUM 40 MG VIAL IV SCH (09:22)
[2017-02-23] MEDS: SODIUM CHLORIDE 0.9% FLUSH 10 ML FLUSH IV FLUSH SCH ×2 (09:22→20:17)
[2017-02-23] MEDS: LORazepam 2 MG/ML VIAL IV PUSH PRN ×2 (09:22→15:36)
--- NOTE | 2017-02-23 09:29 | HHI.PR ---
Subjective Remarks not on tele holter on Objective Vital Signs Date Time Temp Pulse Resp B/P Pulse Ox O2 Delivery O2 Flow Rate FiO2 02/23/17 08:11 98.3 65 17 122/79 97 02/23/17 04:00 96.6 57 26 119/79 93 02/23/17 00:00 97.1 60 20 103/58 95 02/22/17 21:30 97.0 61 18 117/74 97 02/22/17 20:00 69 02/22/17 20:00 98.8 69 20 116/57 92 02/22/17 19:00 93 Room Air 02/22/17 18:00 72 02/22/17 16:00 98.4 66 19 128/72 96 02/22/17 16:00 69 02/22/17 14:00 74 02/22/17 12:00 98.0 56 23 131/79 97 02/22/17 12:00 78 02/22/17 10:00 82 I/O 02/22/17 02/22/17 02/22/17 02/23/17 02/23/17 02/23/17 07:00 15:00 23:00 07:00 15:00 23:00 Intake Total 761 ml 921 ml 723 ml Output Total 350 ml 750 ml Balance 411 ml 171 ml 723 ml Intake Oral 240 ml IV Total 761 ml 681 ml 723 ml Output Urine Total 350 ml 750 ml # Voids 1 # Bowel Movements 0 Result Diagram: 02/22/17 1250 02/22/17 1250 Other Results ldl inc mri neg echo nl labs ok Objective Remarks vff face sym some mild diffuse left arm and leg weak 4+ poor effort 5/5 r nl speech Assessment and Plan Assessment and Plan imp no cva tia he had some slurred speech check mri c spine though hypercoag screen and needs QUENTIN asa and statin etoh w drawal i dw nurse meds dep celexa Reuben Cochran MD February 23, 2017 09:29
--- NOTE | 2017-02-23 11:01 | RADRPT ---
EXAM DATE/TIME: 02/23/2017 10:25 [facility] COMPARISON: No previous studies available for comparison. INDICATIONS : Left upper extremity numbness. MEDICAL HISTORY : None. SURGICAL HISTORY : None. ENCOUNTER: Initial ACUITY: 1 day PAIN SCORE: 0/10 LOCATION: Paraspinal TECHNIQUE: Multiplanar, multisequence MRI examination of the cervical spine was performed. FINDINGS: VERTEBRAE: Normal vertebral body height. Bone marrow signal is within normal limits. There is a hemangioma withi n the C7 vertebral body. ALIGNMENT: No anterolisthesis or retrolisthesis. CORD: Normal configuration and signal. POST FOSSA: The cerebellar tonsils are normal in position. The craniocervical junction and C1-C2 level demonstrate no abnormality. C2-C3: No disc herniation, canal stenosis, or neural foraminal stenosis. C3-C4: No disc herniation, canal stenosis, or neural foraminal stenosis. C4-C5: No disc herniation, canal stenosis, or neural foraminal stenosis. C5-C6: There is mild decreased disc height with a right anterolateral endplate osteophyte and minimal control panel assembler ior disc osteophyte complex and right uncovertebral osteophyte. Right neural foramen is very mildly n arrowed. There is no canal stenosis or left neural foraminal narrowing. C6-C7: No disc herniation, canal stenosis, or neural foraminal stenosis. C7-T1: No disc herniation, canal stenosis, or neural foraminal stenosis. CONCLUSION: Mild degenerative disc disease at C5-C6 with mild right neural foraminal narrowing. No canal stenosis or left neural foraminal narrowing is visualized. Piotr Blevins MD on February 23, 2017 at 10:56 Board Certified Radiologist. This report was verified electronically.
--- NOTE | 2017-02-23 12:26 | HHI.PR ---
Subjective Remarks f/u for TIA patient seen while getting EEG. He stated he feels better. + right sided weakness that is improving. denied any ENNIS, CP, SOB, palpitations. no acute events. Objective Vitals Vital Signs Date Time Temp Pulse Resp B/P Pulse Ox O2 Delivery O2 Flow Rate FiO2 02/23/17 11:59 97.3 71 18 128/86 96 02/23/17 10:13 97 21 02/23/17 08:11 98.3 65 17 122/79 97 02/23/17 04:00 96.6 57 26 119/79 93 02/23/17 00:00 97.1 60 20 103/58 95 02/22/17 21:30 97.0 61 18 117/74 97 02/22/17 20:00 69 02/22/17 20:00 98.8 69 20 116/57 92 02/22/17 19:00 93 Room Air 02/22/17 18:00 72 02/22/17 16:00 98.4 66 19 128/72 96 02/22/17 16:00 69 02/22/17 14:00 74 I/O 02/22/17 02/22/17 02/22/17 02/23/17 02/23/17 02/23/17 07:00 15:00 23:00 07:00 15:00 23:00 Intake Total 761 ml 921 ml 723 ml Output Total 350 ml 750 ml 400 ml Balance 411 ml 171 ml 723 ml -400 ml Intake Oral 240 ml IV Total 761 ml 681 ml 723 ml Output Urine Total 350 ml 750 ml 400 ml # Voids 1 # Bowel Movements 0 Result Diagram: 02/22/17 1250 02/22/17 1250 Objective Remarks GENERAL: in NAD exam while supine. SKIN: Warm and dry. HEAD: Normocephalic. EYES: No scleral icterus. No injection or drainage. NECK: Supple, trachea midline. No JVD or lymphadenopathy. CARDIOVASCULAR: Regular rate and rhythm without murmurs, gallops, or rubs. RESPIRATORY: Breath sounds equal bilaterally. No accessory muscle use. GASTROINTESTINAL: Abdomen soft, non-tender, nondistended. MUSCULOSKELETAL:4-5/5 strength on left UE and LE. otherwise right sided strength intact. BACK: Nontender without obvious deformity. No CVA tenderness. Medications and IVs Current Medications Sodium Chloride (NS 1000 ml Inj) 1,000 ml @ 70 mls/hr [id number] ONCE IV Last administered on 02/21/17 17:53; Start 02/21/17 at 16:53; Stop 02/22/17 at 07:10 ; Status DC Alteplase, Recombinant 8.1 mg 8.1 mg ONCE ONCE IV Last administered on 17:45; Start 02/21/17 at 17:30; Stop 02/21/17 at 17:35; Status DC Alteplase, Recombinant/ Syringe / Bag (Activase Drip/ Syringe/Bag) 72.4999 ml @ 72.5 mls/ hr ONCE ONCE IV Last administered on 02/21/17 17:47; Start at 17:30; Stop 02/21/17 at 18:29; Status DC Sodium Chloride (NS Inj) 30 ml ONCE ONCE IVF Last administered on 02/21/17 18 :51; Start 02/21/17 at 17:30; Stop 02/21/17 at 17:35; Status DC Miscellaneous Information No Heparin, Warfarin, Aspir... UNSCH PRN XX SEE DOSE INSTRUCTIONS; Start 02/21/17 at 17:30; Stop 02/22/17 at 17:29; Status DC Sodium Chloride (NS 1000 ml Inj) 1,000 ml @ 84 mls/hr [id number] IV Last administered on 02/22/17 05:42; Start 02/21/17 at 17:47; Stop 02/23/17 at 09:48 ; Status DC Sodium Chloride (NS Flush) 2 ml UNSCH PRN IV FLUSH FLUSH AFTER USING IV ACCESS ; Start 02/21/17 at 18:00 Sodium Chloride (NS Flush) 2 ml BID IV FLUSH Last administered on 02/23/17 09: 22; Start 02/21/17 at 21:00 Acetaminophen (Tylenol) 650 mg Q6H PRN PO PAIN 1-10 AND/OR FEVER >101F; Start 02/21/17 at 18:00 Pantoprazole Sodium (Protonix Inj) 40 mg DAILY IV Last administered on 09:22; Start 02/22/17 at 09:00 Artificial Tears (Tears Naturale Opth Soln) 1 drop TID EACH EYE Last administered on 02/22/17 13:00; Start 02/21/17 at 18:00 Ondansetron HCl (Zofran Inj) 4 mg Q6H PRN IV NAUSEA OR VOMITING Last administered on 02/22/17 20:20; Start 02/21/17 at 18:00 Albuterol Sulfate (Albuterol Neb) 2.5 mg Q2HR NEB PRN INH SOB/WHEEZING; Start 02/21/17 at 18:00 Miscellaneous Information 1 [id number] Last administered on 02/21/17 18:00; Start 02/21/17 at 18:00 Chlorhexidine Gluconate (Chlorhexidine 2% Cloth) 3 pack Taper DAILY@04 TOP Last administered on 02/23/17 03:18; Start 02/22/17 at 04:00; Stop 02/18/18 at 03:59 Chlorhexidine Gluconate (Chlorhexidine 2% Cloth) 3 pack UNSCH PRN TOP HYGIENIC CARE; Start 02/21/17 at 18:00 Senna/Docusate Sodium (Alanna-Colace) 1 tab BID PO Last administered on 09:21; Start 02/21/17 at 21:00 Magnesium Hydroxide (Milk Of Magnesia Liq) 30 ml Q12H PRN PO MILD - MODERATE CONSTIPATION; Start 02/21/17 at 18:00 Sennosides (Senokot) 17.2 mg Q12H PRN PO MODERATE - SEVERE CONSTIPATION; Start 02/21/17 at 18:00 Bisacodyl (Dulcolax Supp) 10 mg DAILY PRN RECTAL SEVERE CONSITIPATION; Start at 18:00 Lactulose (Lactulose Liq) 30 ml DAILY PRN PO SEVERE CONSITIPATION; Start at 18:00 Labetalol HCl 10 mg 10 mg Q2H PRN IV For SBP > 220 or DBP > 120; Start at 18:00; Stop 02/21/17 at 18:29; Status DC Nicardipine HCl/ Sodium Chloride (Cardene Inj/NS 250 ml Inj) 260 ml @ 0 mls/hr TITRATE IV ; Start 02/21/17 at 19:00 Pravastatin Sodium (Pravachol) 40 mg HS PO Last administered on 02/22/17 20:14 ; Start 02/21/17 at 21:00 Labetalol HCl (Trandate Inj) 10 mg Q1HR PRN IV PUSH SBP>180, DBP>100, HR>65; Start 02/21/17 at 18:00 Hydralazine HCl (Apresoline Inj) 10 mg Q1HR PRN IV PUSH SBP> OR = 180, DBP> OR = 100; Start 02/21/17 at 18:00 Nitroglycerin (Nitroglycerin 2% Oint) 2 inch Q6HR PRN TOPICAL SBP> OR = 180, DBP> OR = 100; Start 02/21/17 at 18:00 Flumazenil (Romazicon Inj) 0.2 mg Q1M PRN IV PUSH SEE LABEL COMMENTS; Start at 18:00 Lorazepam (Ativan) 1 mg Q4H PRN PO CIWA 8 - 10; Start 02/21/17 at 18:00 Lorazepam (Ativan Inj) 1 mg Q4H PRN IV PUSH CIWA 8 - 10 Last administered on 09:22; Start 02/21/17 at 18:00 Lorazepam (Ativan) 2 mg Q2H PRN PO CIWA 11-14; Start 02/21/17 at 18:00 Lorazepam (Ativan Inj) 2 mg Q2H PRN IV PUSH CIWA 11-14; Start 02/21/17 at 18:00 Lorazepam (Ativan Inj) 2 mg Q1H PRN IV PUSH CIWA 15-20; Start 02/21/17 at 18:00 Lorazepam 2 mg 2 mg Q15M PRN IV PUSH CIWA > 20; Start 02/21/17 at 18:00 Multivitamins 10 ml/Thiamine HCl 100 mg/Folic Acid 1 mg/Sodium Chloride 511.2 ml @ 125 mls/hr Q24H IV Last administered on 02/22/17 20:11; Start 02/21/17 at 20:00; Stop 02/24/17 at 19:59 Sodium Chloride (NS 1000 ml Inj) 1,000 ml @ 75 mls/hr [id number] IV Last administered on 02/22/17 23:54; Start 02/22/17 at 10:47 Aspirin (Aspirin) 325 mg DAILY PO Last administered on 02/23/17 09:21; Start 02/22/17 at 07:00 Gadodiamide (Omniscan Pf Inj) 18 ml STK-MED ONCE IV Last administered on t 13:11; Start 02/22/17 at 13:11; Stop 02/22/17 at 13:12; Status DC Citalopram Hydrobromide (CeleXA) 20 mg DAILY PO ; Start 02/23/17 at 10:00 A/P Problem List: (1) Acute CVA (cerebrovascular accident) ICD Code: I63.9 Status: Acute (2) History of alcohol abuse ICD Code: Z87.898 Status: Acute (3) Depression ICD Code: F32.9 Status: Acute Problem Qualifiers (1) Depression: Qualified Code: F32.9 - Depression, unspecified depression type Tiffanie Wan MD February 23, 2017 12:26
--- NOTE | 2017-02-23 12:37 | HHI.PR ---
Subjective Remarks Follow-up for possible TIA Patient states he feels a lot better today. He said that he has some right- sided weakness. He is seen at bedside while getting EEG. He has no complaints. Objective Vitals Vital Signs Date Time Temp Pulse Resp B/P Pulse Ox O2 Delivery O2 Flow Rate FiO2 02/23/17 11:59 97.3 71 18 128/86 96 02/23/17 10:13 97 21 02/23/17 08:11 98.3 65 17 122/79 97 02/23/17 04:00 96.6 57 26 119/79 93 02/23/17 00:00 97.1 60 20 103/58 95 02/22/17 21:30 97.0 61 18 117/74 97 02/22/17 20:00 69 02/22/17 20:00 98.8 69 20 116/57 92 02/22/17 19:00 93 Room Air 02/22/17 18:00 72 02/22/17 16:00 98.4 66 19 128/72 96 02/22/17 16:00 69 02/22/17 14:00 74 I/O 02/22/17 02/22/17 02/22/17 02/23/17 02/23/17 02/23/17 07:00 15:00 23:00 07:00 15:00 23:00 Intake Total 761 ml 921 ml 723 ml Output Total 350 ml 750 ml 400 ml Balance 411 ml 171 ml 723 ml -400 ml Intake Oral 240 ml IV Total 761 ml 681 ml 723 ml Output Urine Total 350 ml 750 ml 400 ml # Voids 1 # Bowel Movements 0 Result Diagram: 02/22/17 1250 02/22/17 1250 Objective Remarks GENERAL: in NAD exam while supine. SKIN: Warm and dry. HEAD: Normocephalic. EYES: No scleral icterus. No injection or drainage. NECK: Supple, trachea midline. No JVD or lymphadenopathy. CARDIOVASCULAR: Regular rate and rhythm without murmurs, gallops, or rubs. RESPIRATORY: Breath sounds equal bilaterally. No accessory muscle use. GASTROINTESTINAL: Abdomen soft, non-tender, nondistended. MUSCULOSKELETAL:4-5/5 strength on left UE and LE. otherwise right sided strength intact. BACK: Nontender without obvious deformity. No CVA tenderness. Medications and IVs Current Medications Sodium Chloride (NS 1000 ml Inj) 1,000 ml @ 70 mls/hr [id number] ONCE IV Last administered on 02/21/17 17:53; Start 02/21/17 at 16:53; Stop 02/22/17 at 07:10 ; Status DC Alteplase, Recombinant 8.1 mg 8.1 mg ONCE ONCE IV Last administered on 17:45; Start 02/21/17 at 17:30; Stop 02/21/17 at 17:35; Status DC Alteplase, Recombinant/ Syringe / Bag (Activase Drip/ Syringe/Bag) 72.4999 ml @ 72.5 mls/ hr ONCE ONCE IV Last administered on 02/21/17 17:47; Start at 17:30; Stop 02/21/17 at 18:29; Status DC Sodium Chloride (NS Inj) 30 ml ONCE ONCE IVF Last administered on 02/21/17 18 :51; Start 02/21/17 at 17:30; Stop 02/21/17 at 17:35; Status DC Miscellaneous Information No Heparin, Warfarin, Aspir... UNSCH PRN XX SEE DOSE INSTRUCTIONS; Start 02/21/17 at 17:30; Stop 02/22/17 at 17:29; Status DC Sodium Chloride (NS 1000 ml Inj) 1,000 ml @ 84 mls/hr [id number] IV Last administered on 02/22/17 05:42; Start 02/21/17 at 17:47; Stop 02/23/17 at 09:48 ; Status DC Sodium Chloride (NS Flush) 2 ml UNSCH PRN IV FLUSH FLUSH AFTER USING IV ACCESS ; Start 02/21/17 at 18:00 Sodium Chloride (NS Flush) 2 ml BID IV FLUSH Last administered on 02/23/17 09: 22; Start 02/21/17 at 21:00 Acetaminophen (Tylenol) 650 mg Q6H PRN PO PAIN 1-10 AND/OR FEVER >101F; Start 02/21/17 at 18:00 Pantoprazole Sodium (Protonix Inj) 40 mg DAILY IV Last administered on 09:22; Start 02/22/17 at 09:00 Artificial Tears (Tears Naturale Opth Soln) 1 drop TID EACH EYE Last administered on 02/22/17 13:00; Start 02/21/17 at 18:00 Ondansetron HCl (Zofran Inj) 4 mg Q6H PRN IV NAUSEA OR VOMITING Last administered on 02/22/17 20:20; Start 02/21/17 at 18:00 Albuterol Sulfate (Albuterol Neb) 2.5 mg Q2HR NEB PRN INH SOB/WHEEZING; Start 02/21/17 at 18:00 Miscellaneous Information 1 [id number] XX Last administered on 02/21/17 18:00; Start 02/21/17 at 18:00 Chlorhexidine Gluconate (Chlorhexidine 2% Cloth) 3 pack Taper DAILY@04 TOP Last administered on 02/23/17 03:18; Start 02/22/17 at 04:00; Stop 02/18/18 at 03:59 Chlorhexidine Gluconate (Chlorhexidine 2% Cloth) 3 pack UNSCH PRN TOP HYGIENIC CARE; Start 02/21/17 at 18:00 Senna/Docusate Sodium (Alanna-Colace) 1 tab BID PO Last administered on 09:21; Start 02/21/17 at 21:00 Magnesium Hydroxide (Milk Of Magnesia Liq) 30 ml Q12H PRN PO MILD - MODERATE CONSTIPATION; Start 02/21/17 at 18:00 Sennosides (Senokot) 17.2 mg Q12H PRN PO MODERATE - SEVERE CONSTIPATION; Start 02/21/17 at 18:00 Bisacodyl (Dulcolax Supp) 10 mg DAILY PRN RECTAL SEVERE CONSITIPATION; Start at 18:00 Lactulose (Lactulose Liq) 30 ml DAILY PRN PO SEVERE CONSITIPATION; Start at 18:00 Labetalol HCl 10 mg 10 mg Q2H PRN IV For SBP > 220 or DBP > 120; Start at 18:00; Stop 02/21/17 at 18:29; Status DC Nicardipine HCl/ Sodium Chloride (Cardene Inj/NS 250 ml Inj) 260 ml @ 0 mls/hr TITRATE IV ; Start 02/21/17 at 19:00 Pravastatin Sodium (Pravachol) 40 mg HS PO Last administered on 02/22/17 20:14 ; Start 02/21/17 at 21:00 Labetalol HCl (Trandate Inj) 10 mg Q1HR PRN IV PUSH SBP>180, DBP>100, HR>65; Start 02/21/17 at 18:00 Hydralazine HCl (Apresoline Inj) 10 mg Q1HR PRN IV PUSH SBP> OR = 180, DBP> OR = 100; Start 02/21/17 at 18:00 Nitroglycerin (Nitroglycerin 2% Oint) 2 inch Q6HR PRN TOPICAL SBP> OR = 180, DBP> OR = 100; Start 02/21/17 at 18:00 Flumazenil (Romazicon Inj) 0.2 mg Q1M PRN IV PUSH SEE LABEL COMMENTS; Start at 18:00 Lorazepam (Ativan) 1 mg Q4H PRN PO CIWA 8 - 10; Start 02/21/17 at 18:00 Lorazepam (Ativan Inj) 1 mg Q4H PRN IV PUSH CIWA 8 - 10 Last administered on 09:22; Start 02/21/17 at 18:00 Lorazepam (Ativan) 2 mg Q2H PRN PO CIWA 11-14; Start 02/21/17 at 18:00 Lorazepam (Ativan Inj) 2 mg Q2H PRN IV PUSH CIWA 11-14; Start 02/21/17 at 18:00 Lorazepam (Ativan Inj) 2 mg Q1H PRN IV PUSH CIWA 15-20; Start 02/21/17 at 18:00 Lorazepam 2 mg 2 mg Q15M PRN IV PUSH CIWA > 20; Start 02/21/17 at 18:00 Multivitamins 10 ml/Thiamine HCl 100 mg/Folic Acid 1 mg/Sodium Chloride 511.2 ml @ 125 mls/hr Q24H IV Last administered on 02/22/17 20:11; Start 02/21/17 at 20:00; Stop 02/24/17 at 19:59 Sodium Chloride (NS 1000 ml Inj) 1,000 ml @ 75 mls/hr [id number] IV Last administered on 02/22/17 23:54; Start 02/22/17 at 10:47 Aspirin (Aspirin) 325 mg DAILY PO Last administered on 02/23/17 09:21; Start 02/22/17 at 07:00 Gadodiamide (Omniscan Pf Inj) 18 ml STK-MED ONCE IV Last administered on t 13:11; Start 02/22/17 at 13:11; Stop 02/22/17 at 13:12; Status DC Citalopram Hydrobromide (CeleXA) 20 mg DAILY PO ; Start 02/23/17 at 10:00 A/P Problem List: (1) Acute CVA (cerebrovascular accident) ICD Code: I63.9 Status: Acute (2) History of alcohol abuse ICD Code: Z87.898 Status: Acute (3) Depression ICD Code: F32.9 Status: Acute Assessment and Plan ? TIA -MRI negative. CTA of the head negative. -Neurologist following. Pending EEG. Neurologist is doing a hypercoagulable workup and consulted home care scheduler for a QUENTIN. EtOH abuse CIWA protocol initiated - okay with neurology Thiamine, folate/multivitamin daily 3 days Monitor for DTs Tobaccoism -Tobacco cessation education provided Prophylaxis - GI - Protonix - DVT - SCD/pharmacological prophylaxis contraindicated status post alteplase 24 hours Problem Qualifiers (1) Depression: Qualified Code: F32.9 - Depression, unspecified depression type Tiffanie Wan MD February 23, 2017 12:37
[2017-02-23 12:45] LABS: HEMOGLOBIN A1a 1.7 %; HEMOGLOBIN A1b 1.3 %; HEMOGLOBIN Ao 86.7 %; HEMOGLOBIN LA1C 1.5 %; HEMOGLOBIN P3 3.2 %
[2017-02-23] MEDS: CITALOPRAM HYDROBROMIDE 20 MG TAB PO SCH (13:09)
--- NOTE | 2017-02-23 15:41 | MB ---
cc: NEETA PUTNAM M.D. DATE OF CONSULTATION: 02/23/2017. REASON FOR CONSULTATION: Transesophageal echocardiography. HISTORY OF PRESENT ILLNESS: The patient is a 47-year-old white male with no major past medical history who was admitted with acute neurological symptoms. He has been felt to have sustained a transient ischemic attack. He is now referred for transesophageal echocardiography. He denies any recent chest pain, shortness of breath, dizziness, syncope, near-syncope, palpitations, pedal edema. The patient rides his bike on a daily basis, riding for as much as 100 miles a week without difficulty. The patient states he continues to have some slight residual left-sided weakness with some numbness of his left fourth and fifth fingers. PAST MEDICAL HISTORY: None. CURRENT CARDIAC MEDICATIONS: 1. Aspirin 325 milligrams p.o. daily. 2. Pravastatin 40 milligrams p.o. at bedtime. ALLERGIES: NO KNOWN DRUG ALLERGIES. FAMILY HISTORY: There is no significant family history of early myocardial infarction. SOCIAL HISTORY: The patient smokes cigarettes occasionally. He drinks wine daily. REVIEW OF SYSTEMS: Review of systems as in the history of present illness otherwise negative or noncontributory. He also denies headache, abdominal pain, melena, dyspepsia, bright red blood per rectum. PHYSICAL EXAMINATION: VITAL SIGNS: Blood pressure 128/86 with pulse of 70, respirations 18. GENERAL: He is a well-developed, well-nourished white male in no acute distress. HEAD, EYES, EARS, NOSE, THROAT: On HEENT examination, jugular venous pressure is normal. Carotid pulses are 2+ bilaterally and without bruits. CHEST: Examination of the chest reveals clear lung sterling. CARDIAC: On cardiac examination, he has a regular rhythm and rate without S3, S4 or murmur. ABDOMEN: On abdominal examination, he has a soft, nontender abdomen. Bowel sounds are present. There is no definite hepatosplenomegaly. EXTREMITIES: Examination of extremities reveals no clubbing, cyanosis or edema. LABORATORY DATA: Laboratory data includes normal CBC. Potassium 6.1, BUN 9, creatinine 0.9. AST 65, ALT 51. Total cholesterol 212, LDL 118, HDL 77. EKGS: EKG shows sinus rhythm, rightward axis. IMPRESSION: Transient ischemic attack in this 47-year-old white male with no major past medical history. I have been asked to see the patient for transesophageal echocardiography. At this point, I would agree with the need for this study. The nature of this procedure and the potential risks have been outlined to the patient. He agrees to proceed. RECOMMENDATIONS: Transesophageal echocardiography when we are able to place it on the schedule, possibly the morning of 02/25/2017. MD HENRIETTA Lema/TREVON /2:33 PM /3:37 PM MTDNile
[2017-02-23] MEDS: MULTIVITAMIN INJ 10 ML, THIAMINE INJ 100 MG, FOLIC ACID INJ 1 MG in SODIUM CHLORID 0.9%... IV SCH (20:17)
[2017-02-23] MEDS: PRAVASTATIN SOD 40 MG TAB PO SCH (20:18)
[2017-02-24] VITALS (8 sets, daily range): BP systolic 116–129; BP diastolic 69–87; PULSE 59–72; RESP 18–32; TEMP 97.6–98.8; O2SAT 95–99
[2017-02-24] MEDS: SODIUM CHLOR 0.9% 1000 ML INJ 1,000 ML IV SCH ×2 (02:47→17:34)
[2017-02-24] MEDS: CHLORHEXIDINE GLUCONATE 2 % 1 PACK (2 CLOTHS) TOP SCH (03:57)
--- NOTE | 2017-02-24 08:28 | HM ---
Date Performed: 02/22/2017 Time Performed: 21:59:00 HOOKUP DATE: 02/22/17 09:59:00 PM Sat ANALYSIS START TIME: 02/22/2017 10:04:00 PM ANALYSIS END TIME: 02/23/2017 9:26:53 AM PATIENT AGE: 47 PATIENT HEIGHT PATIENT WEIGHT DRUG LIST PATIENT DIAGNOSIS: ACUTE CVA TEST NARRATIVE: The patient's average heart rate was 62 BPM. No episodes of tachycardia wer e noted. Heart rates less than 50 BPM were noted 1% of the time. No pauses exceeding 2.0 seconds were noted. No ventricular ectopics were noted. No supraventricular ectopics were noted. No episodes of ST depression (defined as -1.0 mm or more) were noted in channel 1. No episodes of S T depression (defined as -1.0 mm or more) were noted in channel 2. No episodes of ST depression (def ined as -1.0 mm or more) were noted in channel 3. TEST INTERPRETATION: No diary is available. No significant pauses are present. The underlying rhythm is Sinus rhythm with average rate 62 bpm and range of 47-108 bpm. Sinus arrhythmia is intermittently seen and is a normal finding. No ectopic beats are seen. Signed by : Karlos Subramanian
[2017-02-24] MEDS: PANTOPRAZOLE SODIUM 40 MG VIAL IV SCH (08:56)
[2017-02-24] MEDS: CITALOPRAM HYDROBROMIDE 20 MG TAB PO SCH (08:56)
[2017-02-24] MEDS: SODIUM CHLORIDE 0.9% FLUSH 10 ML FLUSH IV FLUSH SCH ×2 (08:57→22:04)
[2017-02-24] MEDS: ASPIRIN 325 MG TAB PO SCH (08:57)
[2017-02-24] MEDS: DOCUSATE SODIUM 50 MG/SENNA 8.6 MG TAB PO SCH ×2 (08:57→22:04)
[2017-02-24] MEDS: ARTIFICIAL TEARS OPTH SOLN 15 ML BTL EACH EYE SCH ×3 (09:00→17:37)
[2017-02-24] MEDS ORDERED: METOPROLOL TARTRATE 25 MG TAB PO PRN (09:00)
[2017-02-24] MEDS ORDERED: INSULIN HUMAN REGULAR 1,000 UNITS/10 ML VIAL SQ PRN (09:00)
[2017-02-24] MEDS ORDERED: SODIUM CHLORID 0.9% 500 ML IV PRN (09:00)
[2017-02-24] MEDS ORDERED: CHLORHEXIDINE GLUCONATE 2 % 1 PACK (2 CLOTHS) TOPICAL PRN (09:00)
[2017-02-24] MEDS ORDERED: POVIDONE IODINE 5% (ANTISEPSIS KIT) 4 APPLICATIONS EACH NARE PRN (09:00)
[2017-02-24] MEDS ORDERED: LACTATED RINGER'S 1000 ML IV PRN (09:00)
[2017-02-24] MEDS ORDERED: ESCITALOPRAM OXALATE 10 MG TAB PO SCH (09:45)
--- NOTE | 2017-02-24 09:50 | HHI.PR ---
Subjective Remarks sr holter on Objective Vital Signs Date Time Temp Pulse Resp B/P Pulse Ox O2 Delivery O2 Flow Rate FiO2 02/24/17 08:49 97.6 72 18 118/83 99 02/24/17 04:00 97.8 59 20 121/76 95 02/24/17 00:00 98.8 63 18 121/87 97 02/23/17 20:00 97.2 75 22 138/65 100 02/23/17 20:00 79 02/23/17 17:51 21 02/23/17 16:25 98.3 85 19 121/76 97 02/23/17 11:59 97.3 71 18 128/86 96 02/23/17 10:13 97 21 I/O 02/23/17 02/23/17 02/23/17 02/24/17 02/24/17 02/24/17 07:00 15:00 23:00 07:00 15:00 23:00 Intake Total 723 ml 900 ml Output Total 660 ml 300 ml 1100 ml Balance 723 ml -660 ml -300 ml -200 ml IV Total 723 ml 900 ml Output Urine Total 660 ml 300 ml 1100 ml Result Diagram: 02/22/17 1250 02/22/17 1250 Objective Remarks vff face sym some mild diffuse left arm and leg weak 4+ poor effort 5/5 r nl speech looks better today a lot of anxiety by hx relaxed now Assessment and Plan Assessment and Plan imp no cva tia he had some slurred speech check mri c spine nl hypercoag screen and needs QUENTIN pend asa and statin etoh w drawal i dw nurse meds dep celexa on it oob ok stable overnoc Reuben Orozco MD February 24, 2017 09:50
--- NOTE | 2017-02-24 12:59 | HHI.PR ---
Subjective Remarks Follow-up for TIA Patient has no complaints he stated that he is doing better. Focal neurological deficit. denied headache, visual changes or headache. No acute events overnight. Objective Vitals Vital Signs Date Time Temp Pulse Resp B/P Pulse Ox O2 Delivery O2 Flow Rate FiO2 02/24/17 09:59 96 21 02/24/17 08:49 97.6 72 18 118/83 99 02/24/17 04:00 97.8 59 20 121/76 95 02/24/17 00:00 98.8 63 18 121/87 97 02/23/17 20:00 97.2 75 22 138/65 100 02/23/17 20:00 79 02/23/17 17:51 21 02/23/17 16:25 98.3 85 19 121/76 97 I/O 02/23/17 02/23/17 02/23/17 02/24/17 02/24/17 02/24/17 07:00 15:00 23:00 07:00 15:00 23:00 Intake Total 723 ml 900 ml Output Total 660 ml 300 ml 1100 ml Balance 723 ml -660 ml -300 ml -200 ml IV Total 723 ml 900 ml Output Urine Total 660 ml 300 ml 1100 ml Result Diagram: 02/22/17 1250 02/22/17 1250 Objective Remarks GENERAL: in NAD exam while supine. SKIN: Warm and dry. HEAD: Normocephalic. EYES: No scleral icterus. No injection or drainage. NECK: Supple, trachea midline. No JVD or lymphadenopathy. CARDIOVASCULAR: Regular rate and rhythm without murmurs, gallops, or rubs. RESPIRATORY: Breath sounds equal bilaterally. No accessory muscle use. GASTROINTESTINAL: Abdomen soft, non-tender, nondistended. MUSCULOSKELETAL:4-5/5 strength on left UE and LE. otherwise right sided strength intact. BACK: Nontender without obvious deformity. No CVA tenderness. Medications and IVs Current Medications Sodium Chloride (NS 1000 ml Inj) 1,000 ml @ 70 mls/hr [id number] ONCE IV Last administered on 02/21/17 17:53; Start 02/21/17 at 16:53; Stop 02/22/17 at 07:10 ; Status DC Alteplase, Recombinant 8.1 mg 8.1 mg ONCE ONCE IV Last administered on 17:45; Start 02/21/17 at 17:30; Stop 02/21/17 at 17:35; Status DC Alteplase, Recombinant/ Syringe / Bag (Activase Drip/ Syringe/Bag) 72.4999 ml @ 72.5 mls/ hr ONCE ONCE IV Last administered on 02/21/17 17:47; Start at 17:30; Stop 02/21/17 at 18:29; Status DC Sodium Chloride (NS Inj) 30 ml ONCE ONCE IVF Last administered on 02/21/17 18 :51; Start 02/21/17 at 17:30; Stop 02/21/17 at 17:35; Status DC Miscellaneous Information No Heparin, Warfarin, Aspir... UNSCH PRN XX SEE DOSE INSTRUCTIONS; Start 02/21/17 at 17:30; Stop 02/22/17 at 17:29; Status DC Sodium Chloride (NS 1000 ml Inj) 1,000 ml @ 84 mls/hr [id number] IV Last administered on 02/22/17 05:42; Start 02/21/17 at 17:47; Stop 02/23/17 at 09:48 ; Status DC Sodium Chloride (NS Flush) 2 ml UNSCH PRN IV FLUSH FLUSH AFTER USING IV ACCESS ; Start 02/21/17 at 18:00 Sodium Chloride (NS Flush) 2 ml BID IV FLUSH Last administered on 02/24/17 08: 57; Start 02/21/17 at 21:00 Acetaminophen (Tylenol) 650 mg Q6H PRN PO PAIN 1-10 AND/OR FEVER >101F; Start 02/21/17 at 18:00 Pantoprazole Sodium (Protonix Inj) 40 mg DAILY IV Last administered on 08:56; Start 02/22/17 at 09:00 Artificial Tears (Tears Naturale Opth Soln) 1 drop TID EACH EYE Last administered on 02/22/17 13:00; Start 02/21/17 at 18:00 Ondansetron HCl (Zofran Inj) 4 mg Q6H PRN IV NAUSEA OR VOMITING Last administered on 02/22/17 20:20; Start 02/21/17 at 18:00 Albuterol Sulfate (Albuterol Neb) 2.5 mg Q2HR NEB PRN INH SOB/WHEEZING; Start 02/21/17 at 18:00 Miscellaneous Information 1 Q361D XX Last administered on 02/21/17 18:00; Start 02/21/17 at 18:00 Chlorhexidine Gluconate (Chlorhexidine 2% Cloth) 3 pack Taper DAILY@04 TOP Last administered on 02/23/17 03:18; Start 02/22/17 at 04:00; Stop 02/18/18 at 03:59 Chlorhexidine Gluconate (Chlorhexidine 2% Cloth) 3 pack UNSCH PRN TOP HYGIENIC CARE; Start 02/21/17 at 18:00 Senna/Docusate Sodium (Alanna-Colace) 1 tab BID PO Last administered on 08:57; Start 02/21/17 at 21:00 Magnesium Hydroxide (Milk Of Magnesia Liq) 30 ml Q12H PRN PO MILD - MODERATE CONSTIPATION; Start 02/21/17 at 18:00 Sennosides (Senokot) 17.2 mg Q12H PRN PO MODERATE - SEVERE CONSTIPATION; Start 02/21/17 at 18:00 Bisacodyl (Dulcolax Supp) 10 mg DAILY PRN RECTAL SEVERE CONSITIPATION; Start at 18:00 Lactulose (Lactulose Liq) 30 ml DAILY PRN PO SEVERE CONSITIPATION; Start at 18:00 Labetalol HCl 10 mg 10 mg Q2H PRN IV For SBP > 220 or DBP > 120; Start at 18:00; Stop 02/21/17 at 18:29; Status DC Nicardipine HCl/ Sodium Chloride (Cardene Inj/NS 250 ml Inj) 260 ml @ 0 mls/hr TITRATE IV ; Start 02/21/17 at 19:00 Pravastatin Sodium (Pravachol) 40 mg HS PO Last administered on 02/23/17 20:18 ; Start 02/21/17 at 21:00 Labetalol HCl (Trandate Inj) 10 mg Q1HR PRN IV PUSH SBP>180, DBP>100, HR>65; Start 02/21/17 at 18:00 Hydralazine HCl (Apresoline Inj) 10 mg Q1HR PRN IV PUSH SBP> OR = 180, DBP> OR = 100; Start 02/21/17 at 18:00 Nitroglycerin (Nitroglycerin 2% Oint) 2 inch Q6HR PRN TOPICAL SBP> OR = 180, DBP> OR = 100; Start 02/21/17 at 18:00 Flumazenil (Romazicon Inj) 0.2 mg Q1M PRN IV PUSH SEE LABEL COMMENTS; Start at 18:00 Lorazepam (Ativan) 1 mg Q4H PRN PO CIWA 8 - 10 Last administered on 02/23/17 20:18; Start 02/21/17 at 18:00 Lorazepam (Ativan Inj) 1 mg Q4H PRN IV PUSH CIWA 8 - 10 Last administered on 15:36; Start 02/21/17 at 18:00 Lorazepam (Ativan) 2 mg Q2H PRN PO CIWA 11-14; Start 02/21/17 at 18:00 Lorazepam (Ativan Inj) 2 mg Q2H PRN IV PUSH CIWA 11-14; Start 02/21/17 at 18:00 Lorazepam (Ativan Inj) 2 mg Q1H PRN IV PUSH CIWA 15-20 Last administered on 08:51; Start 02/21/17 at 18:00 Lorazepam 2 mg 2 mg Q15M PRN IV PUSH CIWA > 20; Start 02/21/17 at 18:00 Multivitamins 10 ml/Thiamine HCl 100 mg/Folic Acid 1 mg/Sodium Chloride 511.2 ml @ 125 mls/hr Q24H IV Last administered on 02/23/17 20:17; Start 02/21/17 at 20:00; Stop 02/24/17 at 19:59 Sodium Chloride (NS 1000 ml Inj) 1,000 ml @ 75 mls/hr [id number] IV Last administered on 02/22/17 23:54; Start 02/22/17 at 10:47 Aspirin (Aspirin) 325 mg DAILY PO Last administered on 02/24/17 08:57; Start 02/22/17 at 07:00 Gadodiamide (Omniscan Pf Inj) 18 ml STK-MED ONCE IV Last administered on 13:11; Start 02/22/17 at 13:11; Stop 02/22/17 at 13:12; Status DC Citalopram Hydrobromide 20 mg 20 mg DAILY PO Last administered on 02/24/17t 08: 56; Start 02/23/17 at 10:00 Lactated Ringer's 1,000 ml @ 30 mls/hr Q24H PRN IV SEE LABEL COMMENTS; Start at 09:00; Stop 02/27/17 at 08:59 Sodium Chloride (NS 500 ml Inj) 500 ml @ 30 mls/hr [id number] PRN IV SEE LABEL COMMENTS; Start 02/24/17 at 09:00; Stop 02/27/17 at 08:59 Metoprolol Tartrate (Lopressor) 25 mg OFFICE CHAIR ASSEMBLER PRN PO SEE LABEL COMMENTS; Start 02/24/17 at 09:00; Stop 02/27/17 at 08:59 Povidone Iodine (Betadine 5% Antisepsis Kit) 1 applic OFFICE CHAIR ASSEMBLER PRN EACH NARE SEE LABEL COMMENTS; Start 02/24/17 at 09:00; Stop 02/27/17 at 08:59 Chlorhexidine Gluconate (Chlorhexidine 2% Cloth) 3 pack OFFICE CHAIR ASSEMBLER PRN TOPICAL SEE LABEL COMMENTS; Start 02/24/17 at 09:00; Stop 02/27/17 at 08:59 Insulin Human Regular (NovoLIN R INJ) See Protocol Table ... OFFICE CHAIR ASSEMBLER PRN SQ SEE PROTOCOL TABLE; Start 02/24/17 at 09:00; Stop 02/27/17 at 08:59 Escitalopram Oxalate (Lexapro) 10 mg DAILY PO ; Start 02/24/17 at 09:45; Stop at 09:45; Status DC A/P Problem List: (1) Acute CVA (cerebrovascular accident) ICD Code: I63.9 Status: Acute (2) History of alcohol abuse ICD Code: Z87.898 Status: Acute (3) Depression ICD Code: F32.9 Status: Acute Assessment and Plan ? TIA -MRI negative. CTA of the head negative. -Neurologist following. Neurologist is doing a hypercoagulable workup so far workup is negative. -Pending QUENTIN. Per energy engineer most likely scheduled for tomorrow. EtOH abuse CIWA protocol initiated - okay with neurology Thiamine, folate/multivitamin daily 3 days Monitor for DTs Tobaccoism -Tobacco cessation education provided Prophylaxis - GI - Protonix - DVT - SCD/pharmacological prophylaxis contraindicated status post alteplase 24 hours Discharge Planning Pending QUENTIN. Once results are back can be discharged home. Problem Qualifiers (1) Depression: Qualified Code: F32.9 - Depression, unspecified depression type Tiffanie Wan MD February 24, 2017 12:59
[2017-02-24] MEDS: PRAVASTATIN SOD 40 MG TAB PO SCH (22:04)
[2017-02-25] VITALS: BP 112/69; PULSE 68; RESP 24; TEMP 98.6; O2SAT 97
[2017-02-25] MEDS: CHLORHEXIDINE GLUCONATE 2 % 1 PACK (2 CLOTHS) TOP SCH (03:04)
[2017-02-25 04:00] VITALS: BP 126/83; PULSE 53; RESP 22; TEMP 96.9; O2SAT 98
[2017-02-25] MEDS: SODIUM CHLOR 0.9% 1000 ML INJ 1,000 ML IV SCH (05:42)
[2017-02-25 08:00] VITALS: BP 117/76; PULSE 62; RESP 18; TEMP 97.9; O2SAT 96
[2017-02-25 08:02] VITALS: BP 117/76; PULSE 62; RESP 18; TEMP 97.1; O2SAT 96
--- NOTE | 2017-02-25 08:34 | MG ---
cc: SHANDRA SUMMERS M.D. Lab No: Date: 02/24/2017 Age: Sex: M Race: ELECTROENCEPHALOGRAM NUMBER INTRODUCTION Left arm weakness. Aspirin. Alcohol use. DESCRIPTION The recording shows diffuse beta rhythms and alpha rhythms which are synchronous and symmetrical. No right hemisphere abnormalities are noted. No epileptiform or seizure activity is seen. Photic stimulation was performed without significant posterior driving. IMPRESSION A normal awake EEG. No evidence for a focal or diffuse abnormality. MD NUBIA Pozo/KK /10:29 AM /8:32 AM
[2017-02-25] MEDS: CITALOPRAM HYDROBROMIDE 20 MG TAB PO SCH (09:00)
[2017-02-25] MEDS: ASPIRIN 325 MG TAB PO SCH (09:00)
[2017-02-25] MEDS: ARTIFICIAL TEARS OPTH SOLN 15 ML BTL EACH EYE SCH (09:00)
[2017-02-25] MEDS: DOCUSATE SODIUM 50 MG/SENNA 8.6 MG TAB PO SCH (09:00)
[2017-02-25] MEDS: SODIUM CHLORIDE 0.9% FLUSH 10 ML FLUSH IV FLUSH SCH (09:00)
[2017-02-25] MEDS: PANTOPRAZOLE SODIUM 40 MG VIAL IV SCH (09:00)
--- NOTE | 2017-02-25 09:51 | PD.CARD.PN ---
Subjective Subjective Remarks Denies CP, dyspnea, palpitations, dizziness. Objective Medications Item Value Date Time Aspirin 325 mg 02/22/17 0700 (Aspirin) DAILY/PO 02/24/17 0857 Pravastatin Sodium 40 mg 02/21/17 2100 (Pravachol) HS/PO 02/24/17 2204 Vital Signs / I&O Vital Signs Date Time Temp Pulse Resp B/P Pulse Ox O2 Delivery O2 Flow Rate FiO2 02/25/17 08:02 97.1 62 18 117/76 96 02/25/17 08:00 97.9 62 18 117/76 96 02/25/17 04:00 96.9 53 22 126/83 98 02/25/17 00:00 98.6 68 24 112/69 97 02/24/17 20:24 68 02/24/17 20:00 97.8 72 32 116/69 96 02/24/17 16:26 98.2 72 18 129/73 99 02/24/17 13:02 98.2 70 18 122/ 96 02/24/17 09:59 96 21 I/O 02/24/17 02/24/17 02/24/17 02/25/17 02/25/17 02/25/17 07:00 15:00 23:00 07:00 15:00 23:00 Intake Total 900 ml 1246 ml 570 ml Output Total 1100 ml 750 ml Balance -200 ml 1246 ml -180 ml Intake Oral 480 ml IV Total 900 ml 766 ml 570 ml Output Urine Total 1100 ml 750 ml # Voids 3 Physical Exam GENERAL: Well developed, well nourished. No acute distress. HEENT: Jugular venous pressure is normal. CHEST: Lungs clear to auscultation bilaterally. Unlabored respiratory effort. CARDIAC: Regular rate and rhythm without S3, S4, or murmur. ABDOMEN: Soft, nontender, no hepatosplenomegaly. Bowel sounds present. EXTREMITIES: No clubbing, cyanosis, or edema. Assessment and Plan Problem List: (1) Acute CVA (cerebrovascular accident) Assessment and Plan: Stable cardiac status. QUENTIN today shows no evidence for cardiac source of embolism or intracardiac shunt. LV function normal. (2) Hyperlipidemia Assessment and Plan: Overall suboptimal lipid profile in light of his CVA. Continue statin therapy. Code Status full code Problem Qualifiers (1) Hyperlipidemia: Qualified Code: E78.2 - Mixed hyperlipidemia Basim Levi MD February 25, 2017 09:51
[2017-02-25] MEDS ORDERED: MIDAZOLAM HCL 2 MG/2 ML VIAL ONE (09:59)
[2017-02-25] MEDS ORDERED: ASPI325T PO (10:56)
[2017-02-25] MEDS ORDERED: PRAV40TA PO (10:56)
--- NOTE | 2017-02-25 10:57 | HHI.DS ---
Discharge Summary Admission Date February 21, 2017 at 17:49 Discharge Date: February 25, 2017 Admitting Diagnosis Acute CVA, depression, alcohol abuse, (1) TIA (transient ischemic attack) ICD Code: G45.9 Diagnosis: Principal (2) History of alcohol abuse ICD Code: Z87.898 Diagnosis: Secondary (3) Depression ICD Code: F32.9 Diagnosis: Secondary (4) Hyperlipidemia ICD Code: E78.5 Diagnosis: Secondary Procedures See hospital course. Brief History - From Admission 47-year-old male. Date of admission 02/21/2017. Past medical history includes depression and EtOH abuse. Patient originally injured library at 1550 today to skip the heat. Was noticed to have at 1600 left facial droop and left upper and lower extremity weakness with dysarthria and dysphagia. Patient was transferred to [facility] for stroke alert was notified. Initial NIH score was 15 with deficits with facial droop, inattention, sensory inattention, left upper and lower extremity weakness, dysarthria and dysphagia. CT head/CTA head and neck revealed no acute intracranial findings. Patient was given 8.1 mg alteplase bolus followed by 72.9 mg to complete therapy. His symptoms are slowly resolving in the ED. We are asked to admit. CBC/BMP: 02/22/17 1250 02/22/17 1250 Significant Findings Laboratory Tests Test 02/22/17 02/23/17 12:50 13:00 Monocytes (%) (Auto) 8.1 % (0.0-8.0) Potassium Level 6.1 MEQ/L (3.5-5.1) Random Glucose 68 MG/DL (74-106) Calcium Level 8.1 MG/DL (8.5-10.1) Aspartate Amino Transf 65 U/L (15-37) (AST/SGOT) Albumin 3.3 GM/DL (3.4-5.0) Cholesterol Level 212 MG/DL (120-200) LDL Cholesterol 118 MG/DL (0-99) HDL Cholesterol 77.2 MG/DL (40.0-60.0) Folate GREATER THAN GREATER THAN 20.0 NG/ML 20.0 NG/ML (3.1-17.5) (3.1-17.5) Imaging Last Impressions Cervical Spine MRI 02/23/17 0000 Signed Impressions: Service Date/Time: Thursday, February 23, 2017 10:25 - CONCLUSION: Mild degenerative disc disease at C5-C6 with mild right neural foraminal narrowing. No canal stenosis or left neural foraminal narrowing is visualized. Piotr Blevins MD Brain MRI 02/22/17 0000 Signed Impressions: Service Date/Time: Wednesday, February 22, 2017 13:00 - CONCLUSION: Negative brain MRI with and without contrast. There are no findings to indicate recent ischemia. Piotr Blevins MD Head CTA 02/21/17 1653 Signed Impressions: Service Date/Time: Tuesday, February 21, 2017 16:51 - CONCLUSION: Negative exam. Findings were reported to Dr. Estrada upon interpretation Piotr Page MD Neck CTA 02/21/17 0000 Signed Impressions: Service Date/Time: Tuesday, February 21, 2017 16:51 - CONCLUSION: Negative Piotr Page MD Head CT 02/21/17 0000 Signed Impressions: Service Date/Time: Tuesday, February 21, 2017 16:51 - CONCLUSION: Normal examination. Aditya Truong MD PE at Discharge GENERAL: in NAD exam while supine. SKIN: Warm and dry. HEAD: Normocephalic. EYES: No scleral icterus. No injection or drainage. NECK: Supple, trachea midline. No JVD or lymphadenopathy. CARDIOVASCULAR: Regular rate and rhythm without murmurs, gallops, or rubs. RESPIRATORY: Breath sounds equal bilaterally. No accessory muscle use. GASTROINTESTINAL: Abdomen soft, non-tender, nondistended. MUSCULOSKELETAL: 5 out of 5 upper and lower extreme strength. NEURO: Cranial 2-12 intact. Sensation grossly intact. Coordination is intact. BACK: Nontender without obvious deformity. No CVA tenderness. Pt update on day of discharge Follow-up possible TIA Patient seen after getting a QUENTIN. He has no complaints. He is very anxious to go home. He is asking for food. He denies any chest pain, headache, visual changes or any new focal neurological deficit. Patient told that he was going to be discharged and that he will need a repeat BMP that was ordered stat but eloped without notifying anyone. During my interview with him he did not seem to have any concerns with the plan that I presented to him. Hospital Course ? TIA -CT scan of the head was obtained which was negative. -Patient was admitted for a rule out of TIA/CVA. -MRI negative. CTA of the head negative. -Neurologist consulted a stroke protocol followed. -Neurologist put a hypercoagulable workup which was negative. A TTE was done which was negative. Due to patient being high risk a jewel supervisor consult was put in and he had a QUENTIN which also was negative. -On the day of discharge I spoke to Dr. Orozco over the phone in regards to discharge and he stated that patient can be discharged on full dose of aspirin for a month and may change to baby aspirin after month along with statin. He also stated that patient needs to call his office and a week for hypercoagulable workup results. This was discussed with patient before he left AMA. He stated that he understood. Scripts were not given since patient eloped and noone knew that he was elope since he did not express any concerns. EtOH abuse CIWA protocol initiated Thiamine, folate/multivitamin daily 3 days Monitor for DTs Tobaccoism -Tobacco cessation education provided Pt Condition on Discharge: Good Discharge Disposition: Discharge Home Discharge Time: <= 30 minutes Discharge Instructions DIET: Follow Instructions for: Heart Healthy Diet Activities you can perform: Regular-No Restrictions Follow up Referrals: Neurology - 1 Week with Reuben Orozco MD PCP Follow-up - 1 Week New Medications: Aspirin (Aspirin) 325 Mg Tab 325 MG PO DAILY TIA #30 Ref 0 TAB Pravastatin (Pravachol) 40 Mg Tab 40 MG PO HS TIA #30 Ref 0 TAB Continued Medications: Citalopram (Celexa) 20 Mg Tab 20 MG PO DAILY Control Depression #30 Ref 0 TAB Tiffanie Wan MD February 25, 2017 10:57
--- NOTE | 2017-02-25 10:57 | HHI.DCPOC ---
Discharge Care Plan Diagnosis: (1) Hyperlipidemia (2) Depression (3) Hyperlipidemia (4) TIA (transient ischemic attack) Goals to Promote Your Health * To prevent worsening of your condition and complications * To maintain your health at the optimal level Directions to Meet Your Goals Take your medications as prescribed Follow your dietary instruction Follow activity as directed Keep your appointments as scheduled Take your immunizations and boosters as scheduled If your symptoms worsen call your PCP, if no PCP go to Urgent Care Center or Emergency Room Smoking is Dangerous to Your Health. Avoid second hand smoke Call the 24-hour hour crisis hotline for domestic abuse at Tiffanie Wan MD February 25, 2017 10:57
--- NOTE | 2017-02-25 10:57 | ETE ---
Study Study Date:02/25/2017 STUDY CONCLUSIONS SUMMARY - Study data: Transesophageal echocardiography. - Procedure narrative: Sedation. Conscious sedation was administered by anesthesiology staff. - Left ventricle: The cavity size was normal. Wall thickness was normal. Systolic function was normal. The estimated ejection fraction was in the range of 55% to 60%. Wall motion was normal; there were no regional wall motion abnormalities. - Aortic valve: No evidence of vegetation. - Mitral valve: No evidence of vegetation. Trace regurgitation. - Left atrium: No evidence of thrombus in the atrial cavity or appendage. - Right atrium: No evidence of thrombus in the atrial cavity or appendage. - Atrial septum: Echo contrast study showed no evidence for intracardiac shunt. - Tricuspid valve: No evidence of vegetation. Trace regurgitation. - Pulmonic valve: No evidence of vegetation. If LV function is below 40, please consider prescribing an ACEI or ARB or document rationale for non-use. PROCEDURE DATA Consent: The risks, benefits, and alternatives to the procedure were explained to the patient and informed consent was obtained. Procedure: Initial setup. The patient was brought to the laboratory in the fasting state. Intravenous access was obtained. Surface ECG leads and pulse oximetric signals were monitored. Sedation. Conscious sedation was administered by anesthesiology staff. Transesophageal echocardiography. Topical anesthesia was obtained using viscous lidocaine. A transesophageal probe was inserted by the attending conservation enforcement officer. Image quality was good. Study completion: All IVs inserted during the procedure were removed. The patient tolerated the procedure well. There were no complications. Transesophageal echocardiography. 2D, complete spectral Doppler, and color Doppler. CARDIAC ANATOMY LEFT VENTRICLE: The cavity size was normal. Wall thickness was normal. Systolic function was normal. The estimated ejection fraction was in the range of 55% to 60%. Wall motion was normal; there were no regional wall motion abnormalities. AORTIC VALVE: Structurally normal valve. Trileaflet; normal thickness leaflets. Cusp separation was normal. No evidence of vegetation. Doppler: No significant regurgitation. Aorta: - There was no atheroma. There was no evidence for dissection. Aortic root: The aortic root was not dilated. Ascending aorta: The ascending aorta was normal in size. Aortic arch: The aortic arch was normal in size. Descending aorta: The descending aorta was normal in size. MITRAL VALVE: Structurally normal valve. Leaflet separation was normal. No evidence of vegetation. Doppler: Trace regurgitation. LEFT ATRIUM: The atrium was normal in size. No evidence of thrombus in the atrial cavity or appendage. The appendage was morphologically a left appendage, multilobulated, and of normal size. Emptying velocity was normal. ATRIAL SEPTUM: Echo contrast study showed no evidence for intracardiac shunt. RIGHT VENTRICLE: The cavity size was normal. Wall thickness was normal. Systolic function was normal. PULMONIC VALVE: Structurally normal valve. No evidence of vegetation. TRICUSPID VALVE: Structurally normal valve. Leaflet separation was normal. No evidence of vegetation. Doppler: Trace regurgitation. PULMONARY ARTERY: The main pulmonary artery was normal-sized. RIGHT ATRIUM: The atrium was normal in size. No evidence of thrombus in the atrial cavity or appendage. The appendage was morphologically a right appendage. PERICARDIUM: There was no pericardial effusion. Prepared and signed by Basim Levi [id number]
[2017-02-25 11:10] LABS: RAPID PLASMA REAGIN SCREEN NON-REACTIVE (NON-REACTVE)
--- NOTE | 2017-02-25 13:08 | PD.AMA ---
Against Medical Advice Note Discharge Disposition: Against Medical Advice Pt Condition on Discharge: Good Recommended Treatment Course Patient elopelinda. We could not give any information. He left without notifying anyone. AMA Statement Patient Ladarius acuña. Tiffanie Wan MD February 25, 2017 13:08
[2017-02-26 17:48] LABS: ANA SCREEN NEG (NEG)
[2017-02-26] MEDS ORDERED: IBUP400T20 PO (22:14)
[2017-02-28 03:51] LABS: THROMBIN TIME FOR LA ND sec (13-19)
[2017-02-28 15:52] LABS: VITAMIN B6 8.7 ng/mL (2.1-21.7)
== END 2017-02-25 12:45 | disposition left against medical advice (07) | DRG 69 ==
LOC: NEPC 16:40 → NEDA 17:49 → N03B 20:02 → N05A 02-22 21:09
PROVIDERS: ADMIT Family Medicine; ATTEND Family Medicine
PROC: 3E03317 Introduction of Other Thrombolytic into Peripheral Vein, Percutaneous Approach (ICD-10-PCS; principal; 2017-02-21)
PROC: B246ZZ4 Ultrasonography of Right and Left Heart, Transesophageal (ICD-10-PCS; 2017-02-25)
DX: G45.9 Transient cerebral ischemic attack, unspecified (principal); G81.94 Hemiplegia, unspecified affecting left nondominant side; F31.9 Bipolar disorder, unspecified; R29.810 Facial weakness; R47.1 Dysarthria and anarthria; R29.715 NIHSS score 15; H55.00 Unspecified nystagmus; H53.40 Unspecified visual field defects; F10.129 Alcohol abuse with intoxication, unspecified; E78.2 Mixed hyperlipidemia; Y90.9 Presence of alcohol in blood, level not specified; Z59.0 Homelessness; Z72.0 Tobacco use
CPT/HCPCS: 70450; 70496; 70498; 70553; 72141; 80053; 80061; 80307; 81001; 81240; 81241; 82435; 82550; 82565; 82607; 82746; 82947; 82948; 83036; 83735; 84100; 84132; 84207; 84295; 84425; 84439; 84443; 84484; 84520; 85025; 85240; 85300; 85303; 85306; 85384; 85610; 85613; 85652; 85730; 86038; 86147; 86592; 86850; 86900; 86901; 87641; 93005; 93225; 93226; 93306; 93312; 93320; 93325; 94150; 95819; 96374; 96375; A9579; C9113; J2060; J2250; J2405; J2997; J3411; J7030; J7040; Q9967

== ENCOUNTER 2017-02-26 18:20 | Emergency (ER) | payer OTHER ==
[~2017-02-26 18:20] MED LIST: ASPI325T PO; CELE20TA PO; PRAV40TA PO
[2017-02-26 18:52] VITALS: BP 124/80; PULSE 94; RESP 16; TEMP 98.8; O2SAT 95
--- NOTE | 2017-02-26 19:54 | PD ---
HPI Chief Complaint: Fall Time Seen by Provider: 19:52 Travel History International Travel<30 days: No Contact w/Intl Traveler<30days: No Traveled to known affect area: No History of Present Illness HPI 47-year-old male is brought to the emergency department by EMS for evaluation of fall while skateboarding with complaints of right elbow pain, sacral pain and headache. Patient states that he was attending the skateboard today and the board slid out from under him causing him to fall back onto his "tailbone" and also hitting his right elbow. States that when he fell he bumped the back of his head on the ground. Denies loss of consciousness. States that he feels as though there is a hot poker stabbing him in his right elbow. Pain is aggravated with movement. Denies any alleviating factors. The patient admits to drinking multiple alcoholic beverages today. Patient states that he was here last week and had a stroke, has residual left-sided weakness since his stroke last week. States that he did receive TPA at the time. States that he left AGAINST MEDICAL ADVICE before receiving any of his medications upon discharge, therefore denies any anticoagulation at this time. No other complaints. PFSH Past Medical History Bipolar Disorder: Yes Anxiety: Yes Depression: Yes Psychiatric: Yes (Bipolar) Social History Alcohol Use: Yes (daily) Tobacco Use: Yes Substance Use: Yes (wine) Allergies-Medications (Allergen,Severity, Reaction): Coded Allergies: No Known Allergies (Unverified , 02/26/17) Reported Meds & Prescriptions Reported Meds & Active Scripts Active Pravachol (Pravastatin) 40 Mg Tab 40 Mg PO HS Aspirin 325 Mg Tab 325 Mg PO DAILY Reported Celexa (Citalopram Hydrobromide) 20 Mg Tab 20 Mg PO DAILY Review of Systems Except as stated in HPI: all other systems reviewed are Neg Physical Exam Narrative GENERAL: Well-nourished and well-developed pleasant male patient in no acute distress, appears intoxicated. SKIN: No obvious lacerations or abrasions noted. HEAD: Normocephalic and atraumatic. Tenderness to palpation of posterior scalp. No contusions or hematomas noted. EYES: No scleral icterus, injection, or drainage. PERRLA. EOMI. No hyphema present. ENT: No septal hematoma or hemotympanum noted. Oropharynx is clear and the airway is patent. NECK: Supple and the trachea is midline. No obvious deformities, crepitus, or midline tenderness noted. CARDIOVASCULAR: Regular rate and rhythm. RESPIRATORY: Breath sounds are equal bilaterally with no accessory muscle use, wheezing, rhonchi, or crackles. GASTROINTESTINAL: Abdomen is soft, non-tender, and nondistended. MUSCULOSKELETAL: Swelling of right elbow with tenderness to palpation and decreased range of motion. Radial pulses are 2+ bilaterally. 2 point discrimination is intact. No obvious deformities, cyanosis, or ecchymosis is present throughout the upper and lower extremities. Patient has full range of motion without any signs of neurovascular compromise. Patient's left arm and left leg are 5 out of 5 strength however are weaker than the right side, per patient this has been present since last week. NEUROLOGICAL: Awake, alert, and oriented. Normal speech and gait. Cranial nerves are grossly intact. Data Data Last Documented VS Vital Signs Date Time Temp Pulse Resp B/P Pulse Ox O2 Delivery O2 Flow Rate FiO2 02/26/17 20:31 15 100 Nasal Cannula 3 02/26/17 20:29 85 02/26/17 20:28 108/67 02/26/17 18:[address] Brain W/O Iv Contrast(Rout) (02/26/17 19:45) Ct Cerv Spine W/O Contrast (02/26/17 19:45) Elbow, Complete (4 Vws) (02/26/17 19:45) Sacrum And Coccyx (02/26/17 ) Pelvis, Ap Only (Routine) (02/26/17 ) Apply Cervical Collar (02/26/17 19:45) Basic Metabolic Panel (Bmp) (02/26/17 19:52) Complete Blood Count With Diff (02/26/17 19:52) Prothrombin Time / Inr (Pt) (02/26/17 19:52) Act Partial Throm Time (Ptt) (02/26/17 19:52) Iv Access Insert/Monitor (02/26/17 19:52) Ecg Monitoring (02/26/17 19:52) Oximetry (02/26/17 19:52) Ondansetron Inj (Zofran Inj) (02/26/17 20:00) Sodium Chloride 0.9% Flush (Ns Flush) (02/26/17 20:00) Morphine Inj (Morphine Inj) (02/26/17 20:00) Alcohol (Ethanol) (02/26/17 19:52) MDM Medical Decision Making Medical Screen Exam Complete: Yes Emergency Medical Condition: Yes Differential Diagnosis Fracture versus contusion versus sprain versus intracranial hemorrhage versus alcohol intoxication Narrative Course 47-year-old male presents to the emergency room by EMS for evaluation of fall off a skateboard hitting his sacrum, right elbow and posterior head. Patient is afebrile, vital signs are stable. No loss of consciousness. He does have weakness in the left arm and left leg but he states his been present since last week when he was brought here as a stroke alert. IV access is obtained, labs were drawn and sent. CT imaging of the head and cervical spine have been ordered and are pending. X-ray imaging has been ordered and is pending. Patient admits to drinking alcohol today, states he drinks alcohol daily, he does appear slightly intoxicated. I reviewed the EMR which shows the patient was admitted to our hospital 5 days ago as a stroke alert and given TPA. He did elope AGAINST MEDICAL ADVICE before receiving any of his medications. Initial laboratory and imaging studies have been ordered and the patient will be evaluated by another provider when a medical bed becomes available. The triage nurse is aware of the plan. The proposed plan of evaluation and treatment was discussed with the patient who verbalizes an understanding and agrees to proceed. Estefanía Chan February 26, 2017 19:54
[2017-02-26] MEDS ORDERED: SODIUM CHLORIDE 0.9% FLUSH 10 ML FLUSH IV FLUSH PRN (20:00)
[2017-02-26] MEDS ORDERED: ONDANSETRON HCL 4 MG/2 ML VIAL IVP ONE (20:00)
[2017-02-26] MEDS ORDERED: MORPHINE SULFATE 4 MG/ML INJ IV PUSH ONE ×2 (20:00→21:00)
--- NOTE | 2017-02-26 20:27 | PD ---
Physical Exam Date Seen by Provider: February 26, 2017 Time Seen by Provider: 20:26 Narrative The patient is a 47-year-old male who was initially evaluated in the ambulance haul by the mid-level provider. Please refer to the initial history, physical, diagnostic evaluation, treatment modality plan. Data Data Last Documented VS Vital Signs Date Time Temp Pulse Resp B/P Pulse Ox O2 Delivery O2 Flow Rate FiO2 02/27/17 00:07 66 14 118/80 100 Nasal Cannula 3 02/26/17 18:[address] Brain W/O Iv Contrast(Rout) (02/26/17 19:45) Ct Cerv Spine W/O Contrast (02/26/17 19:45) Elbow, Complete (4 Vws) (02/26/17 19:45) Sacrum And Coccyx (02/26/17 ) Pelvis, Ap Only (Routine) (02/26/17 ) Apply Cervical Collar (02/26/17 19:45) Basic Metabolic Panel (Bmp) (02/26/17 19:52) Complete Blood Count With Diff (02/26/17 19:52) Prothrombin Time / Inr (Pt) (02/26/17 19:52) Act Partial Throm Time (Ptt) (02/26/17 19:52) Iv Access Insert/Monitor (02/26/17 19:52) Ecg Monitoring (02/26/17 19:52) Oximetry (02/26/17 19:52) Ondansetron Inj (Zofran Inj) (02/26/17 20:00) Sodium Chloride 0.9% Flush (Ns Flush) (02/26/17 20:00) Morphine Inj (Morphine Inj) (02/26/17 20:00) Alcohol (Ethanol) (02/26/17 19:52) Sodium Chlor 0.9% 1000 Ml Inj (Ns 1000 M (02/26/17 21:00) Ice/Cold Pack (02/26/17 20:51) Support Splint (02/26/17 20:51) Sodium Chlor 0.9% 1000 Ml Inj (Ns 1000 M (02/26/17 21:00) Morphine Inj (Morphine Inj) (02/26/17 21:00) Sling Cradle Arm (02/26/17 ) Collar [place] (02/26/17 ) Labs Laboratory Tests Test 02/26/17 20:55 White Blood Count 9.1 TH/MM3 Red Blood Count 4.54 MIL/MM3 Hemoglobin 14.4 GM/DL Hematocrit 41.5 % Mean Corpuscular Volume 91.4 FL Mean Corpuscular Hemoglobin 31.8 PG Mean Corpuscular Hemoglobin 34.8 % Concent Red Cell Distribution Width 14.0 % Platelet Count 194 TH/MM3 Mean Platelet Volume 6.5 FL Neutrophils (%) (Auto) 56.5 % Lymphocytes (%) (Auto) 33.3 % Monocytes (%) (Auto) 8.2 % Eosinophils (%) (Auto) 0.9 % Basophils (%) (Auto) 1.1 % Neutrophils # (Auto) 5.1 TH/MM3 Lymphocytes # (Auto) 3.0 TH/MM3 Monocytes # (Auto) 0.7 TH/MM3 Eosinophils # (Auto) 0.1 TH/MM3 Basophils # (Auto) 0.1 TH/MM3 CBC Comment DIFF FINAL Differential Comment Prothrombin Time 10.4 SEC Prothromb Time International 0.9 RATIO Ratio Activated Partial 27.0 SEC Thromboplast Time Sodium Level 140 MEQ/L Potassium Level 3.6 MEQ/L Chloride Level 106 MEQ/L Carbon Dioxide Level 24.4 MEQ/L Anion Gap 10 MEQ/L Blood Urea Nitrogen 7 MG/DL Creatinine 1.04 MG/DL Estimat Glomerular Filtration 76 ML/MIN Rate Random Glucose 97 MG/DL Calcium Level 8.4 MG/DL Ethyl Alcohol Level 153 MG/DL [facility] Medical Record Reviewed: Yes Supervised Visit with LIS: Yes Interpretation(s) CT cervical spine reveals degenerative changes, no acute findings CT the brain negative Pelvis x-ray unremarkable Sacral/coccyx x-ray unremarkable Right elbow x-ray reveals unremarkable examination of the right elbow Laboratory Tests Test 02/26/17 20:55 White Blood Count 9.1 TH/MM3 Red Blood Count 4.54 MIL/MM3 Hemoglobin 14.4 GM/DL Hematocrit 41.5 % Mean Corpuscular Volume 91.4 FL Mean Corpuscular Hemoglobin 31.8 PG Mean Corpuscular Hemoglobin 34.8 % Concent Red Cell Distribution Width 14.0 % Platelet Count 194 TH/MM3 Mean Platelet Volume 6.5 FL Neutrophils (%) (Auto) 56.5 % Lymphocytes (%) (Auto) 33.3 % Monocytes (%) (Auto) 8.2 % Eosinophils (%) (Auto) 0.9 % Basophils (%) (Auto) 1.1 % Neutrophils # (Auto) 5.1 TH/MM3 Lymphocytes # (Auto) 3.0 TH/MM3 Monocytes # (Auto) 0.7 TH/MM3 Eosinophils # (Auto) 0.1 TH/MM3 Basophils # (Auto) 0.1 TH/MM3 CBC Comment DIFF FINAL Differential Comment Prothrombin Time 10.4 SEC Prothromb Time International 0.9 RATIO Ratio Activated Partial 27.0 SEC Thromboplast Time Sodium Level 140 MEQ/L Potassium Level 3.6 MEQ/L Chloride Level 106 MEQ/L Carbon Dioxide Level 24.4 MEQ/L Anion Gap 10 MEQ/L Blood Urea Nitrogen 7 MG/DL Creatinine 1.04 MG/DL Estimat Glomerular Filtration 76 ML/MIN Rate Random Glucose 97 MG/DL Calcium Level 8.4 MG/DL Ethyl Alcohol Level 153 MG/DL Differential Diagnosis Differential diagnosis includes fracture, dislocation, contusion, hematoma, abrasion, closed head injury, intracranial hemorrhage, mechanical fall. Narrative Course I, Dr. Smith, have reviewed the advance practice practitioner's documentation and am in agreement, met with the patient face to face, made the diagnosis, and the medical decision making was done by me. *My assessment and Findings: The patient is a 47-year-old male who was initially evaluated by the mid-level provider. Please refer to the initial history, physical, diagnostic evaluation, and treatment modality plan. The patient states he was skateboarding earlier today when he fell backwards, landing on his buttocks, striking his right elbow on the ground, and the posterior aspect of his head. The patient states there was no loss of consciousness, does complain of mild headache as well as right elbow pain and buttock pain. The patient had x-rays obtained, x-ray the right elbow, pelvis, and coccyx were negative. CT of the brain and cervical spine were negative except for arthritic changes. The patient was administered 1 L of IV fluids, morphine, and Zofran. Evaluation of right upper extremity reveals the patient is able flex and extend the right elbow, however, does have ecchymosis of the distal right humeral area that extends around the elbow to the proximal forearm. He has a good positive right radial pulse and passive range of motion of the wrist and elbow do not exacerbate his symptoms, I do not believe this is compartment syndrome. Patient's alcohol level is 153, patient will be allowed to sleep of the alcohol, will be discharged home when he has a ride and safe disposition home. Diagnosis Primary Impression: Right elbow pain Additional Impressions: Coccyx pain Alcohol intoxication Qualified Code: F10.920 - Alcohol intoxication, uncomplicated Patient Instructions: General Instructions, Narcotic given in the ED Additional Instruction: Sling as needed. Elevate, ice, activity as tolerated. Tylenol and/or Motrin as needed for pain. Decrease alcohol intake. Follow-up with your primary physician. Med/Other Pt SpecificInfo: Prescription(s) given Scripts Ibuprofen 400 Mg [id number] Mg PO Q6H PRN (PAIN SCALE 1 TO 10) #20 TAB Ref 0 Prov:Fredrick Smith MD 02/26/17 Disposition: 01 DISCHARGE HOME Condition: Stable Fredrick Smith MD February 26, 2017 20:27 Fredrick Smith MD February 26, 2017 20:27
[2017-02-26 20:28] VITALS: BP 108/67; PULSE 85; RESP 15; O2SAT 99
[2017-02-26 20:31] VITALS: RESP 15; O2SAT 100
--- NOTE | 2017-02-26 20:32 | RADRPT ---
EXAM DATE/TIME: 02/26/2017 19:58 [facility] COMPARISON: No previous studies available for comparison. INDICATIONS : Pelvis pain post fall from skateboard. MEDICAL HISTORY : None. SURGICAL HISTORY : None. ENCOUNTER: Initial ACUITY: 1 day PAIN SCORE: 8/10 LOCATION: pelvis. FINDINGS: A single frontal view of the pelvis demonstrates no evidence of fracture. The bony pelvic ring is in tact. Bony mineralization is normal. The soft tissues are intact. CONCLUSION: Unremarkable examination of the pelvis. Akash Gonzales Jr., MD on February 26, 2017 at 20:30 Board Certified Radiologist. This report was verified electronically.
--- NOTE | 2017-02-26 20:32 | RADRPT ---
EXAM DATE/TIME: 02/26/2017 20:03 [facility] COMPARISON: No previous studies available for comparison. INDICATIONS : Right elbow pain post fall from skateboard. MEDICAL HISTORY : None. SURGICAL HISTORY : None. ENCOUNTER: Initial ACUITY: 1 day PAIN SCORE: 8/10 LOCATION: Right elbow. FINDINGS: Multiple view examination of the right elbow demonstrates no soft tissue swelling, joint effusion, or fracture. The osseous structures are in normal alignment. Bony mineralization is normal. CONCLUSION: Unremarkable examination of the right elbow. Akash Gonzales Jr., MD on February 26, 2017 at 20:30 Board Certified Radiologist. This report was verified electronically.
--- NOTE | 2017-02-26 20:32 | RADRPT ---
EXAM DATE/TIME: 02/26/2017 19:59 [facility] COMPARISON: No previous studies available for comparison. INDICATIONS : Pain post fall from skateboard. MEDICAL HISTORY : None. SURGICAL HISTORY : None. ENCOUNTER: Initial ACUITY: 1 day PAIN SCORE: 8/10 LOCATION: sacrum and coccyx. FINDINGS: Two-view examination of the sacrum and coccyx demonstrates no evidence of fracture or malalignment. The sacral ala and foramina appear symmetric and intact. The coccyx appears unremarkable. The preve rtebral soft tissues are within normal limits. CONCLUSION: Unremarkable examination of the sacrum and coccyx. Akash Gonzales Jr., MD on February 26, 2017 at 20:30 Board Certified Radiologist. This report was verified electronically.
--- NOTE | 2017-02-26 20:33 | RADRPT ---
EXAM DATE/TIME: 02/26/2017 20:11 [facility] COMPARISON: CT BRAIN W/O CONTRAST, February 21, 2017, 16:51. INDICATIONS : Trauma, fall. RADIATION DOSE: 55.21 CTDIvol (mGy) MEDICAL HISTORY : None SURGICAL HISTORY : None. ENCOUNTER: Initial ACUITY: 1 day PAIN SCALE: 3/10 LOCATION: cranial TECHNIQUE: Multiple contiguous axial images were obtained of the head. Using automated exposure control and adj ustment of the mA and/or kV according to patient size, radiation dose was kept as low as reasonably a chievable to obtain optimal diagnostic quality images. FINDINGS: CEREBRUM: The ventricles are normal for age. No evidence of midline shift, mass lesion, hemorrhage or acute in farction. No extra-axial fluid collections are seen. POSTERIOR FOSSA: The cerebellum and brainstem are intact. The 4th ventricle is midline. The cerebellopontine angle i s unremarkable. EXTRACRANIAL: The visualized portion of the orbits is intact. SKULL: The calvaria is intact. No evidence of skull fracture. CONCLUSION: Normal examination. Akash Gonzales Jr., MD on February 26, 2017 at 20:31 Board Certified Radiologist. This report was verified electronically.
--- NOTE | 2017-02-26 20:38 | RADRPT ---
EXAM DATE/TIME: 02/26/2017 20:11 [facility] COMPARISON: No previous studies available for comparison. INDICATIONS : Trauma, fall. Neck pain. RADIATION DOSE: 21.76 CTDIvol (mGy) MEDICAL HISTORY : None SURGICAL HISTORY : None. ENCOUNTER: Initial ACUITY: 1 day PAIN SCALE: 6/10 LOCATION: neck TECHNIQUE: Volumetric scanning of the cervical spine was performed. Multiplanar reconstructions in the sagittal, coronal and oblique axial planes were performed. Using automated exposure control and adjustment o f the mA and/or kV according to patient size, radiation dose was kept as low as reasonably achievable to obtain optimal diagnostic quality images. FINDINGS: VERTEBRAE: Normal vertebral body height. ALIGNMENT: No evidence of subluxation. C2-C3: The bony spinal canal is normal in size. No evidence of disc bulge or herniation. The neural forami na are bilaterally patent. C3-C4: The bony spinal canal is normal in size. No evidence of disc bulge or herniation. The neural forami na are bilaterally patent. C4-C5: The bony spinal canal is normal in size. No evidence of disc bulge or herniation. The neural forami na are bilaterally patent. C5-C6: There is disc space narrowing. The bony spinal canal is normal in size. No evidence of disc bulge or herniation. Bony uncovertebral hypertrophy causes mild narrowing of the neural foramina bilaterally. C6-C7: The bony spinal canal is normal in size. No evidence of disc bulge or herniation. The neural forami na are bilaterally patent. C7-T1: The bony spinal canal is normal in size. No evidence of disc bulge or herniation. The neural forami na are bilaterally patent. CONCLUSION: 1. No fracture or dislocation. 2. C5-C6 degenerative changes with bilateral neural foraminal narrowing. Akash Gonzales Jr., MD on February 26, 2017 at 20:32 Board Certified Radiologist. This report was verified electronically.
[2017-02-26 21:00] VITALS: BP 113/74; PULSE 82; RESP 15; O2SAT 100
[2017-02-26] MEDS ORDERED: SODIUM CHLOR 0.9% 1000 ML INJ 1,000 ML IV ONE ×2 (21:00)
[2017-02-26 21:12] LABS: AUTOMATED NEUTROPHIL # 5.1 TH/MM3 (1.8-7.7); BASOPHIL # 0.1 TH/MM3 (0-0.2); BASOPHIL % 1.1 % (0.0-2.0); EOSINOPHIL # 0.1 TH/MM3 (0-0.4); EOSINOPHIL % 0.9 % (0.0-4.0); HEMATOCRIT 41.5 % (39.0-51.0); HEMO FLAGS DIFF FINAL; LYMPH % 33.3 % (9.0-44.0); MEAN CELL VOLUME 91.4 FL (80.0-100.0); MEAN CORPUSCULAR HEMOGLOBIN 31.8 PG (27.0-34.0); MEAN CORPUSCULAR HGB CONC 34.8 % (32.0-36.0); MONO % 8.2 % (0.0-8.0); NEUT % 56.5 % (16.0-70.0); PLATELET COUNT 194 TH/MM3 (150-450); RED BLOOD COUNT 4.54 MIL/MM3 (4.50-5.90); WHITE BLOOD COUNT 9.1 TH/MM3 (4.0-11.0)
[2017-02-26 21:20] VITALS: BP 120/78; PULSE 79; RESP 15; O2SAT 100
[2017-02-26 21:22] LABS: INTERNATIONAL NORMALIZED RATIO 0.9 RATIO; PROTHROMBIN TIME - PATIENT 10.4 SEC (9.8-11.6)
[2017-02-26 21:33] LABS: BICARBONATE 24.4 MEQ/L (21.0-32.0); POTASSIUM 3.6 MEQ/L (3.5-5.1)
[2017-02-26] MEDS ORDERED: IBUP400T20 PO (22:14)
[2017-02-27 00:07] VITALS: BP 118/80; PULSE 66; RESP 14; O2SAT 100
== END 2017-02-27 06:35 | disposition home or self-care (01) ==
LOC: NEPE 18:20
DX: M25.521 Pain in right elbow (principal); S39.92XA Unspecified injury of lower back, initial encounter; F10.129 Alcohol abuse with intoxication, unspecified; W19.XXXA Unspecified fall, initial encounter; Y93.51 Activity, roller skating (inline) and skateboarding; Y90.6 Blood alcohol level of 120-199 mg/100 ml; Z72.0 Tobacco use
CPT/HCPCS: 70450; 72125; 72170; 72220; 73080; 80048; 80307; 85025; 85610; 85730; 96374; 96375; 99285; J2270; J2405; J7030; L0150

== ENCOUNTER 2017-03-05 12:10 | Emergency (ER) | payer OTHER ==
[~2017-03-05] VITALS: Ht 177.8 cm; Wt 84.0 kg
[2017-03-05 12:10] VITALS: BP 140/83; PULSE 96; RESP 20; TEMP 98.9; O2SAT 97
[~2017-03-05 12:10] MED LIST changes: +IBUP400T20 PO
--- NOTE | 2017-03-05 12:40 | PD ---
Physical Exam Time Seen by Provider: 12:37 Narrative 47yo M c/o having thoughts of suicide x3 days. 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 Reports not being on antidepressants for 1 week and feeling depressed x 3 days too. Reports drinking ETOH in the past few days and today. Patient seen in triage. VS reviewed. Awaiting bed placement. Data Data Last Documented VS Vital Signs Date Time Temp Pulse Resp B/P Pulse Ox O2 Delivery O2 Flow Rate FiO2 03/05/17 12:10 98.9 96 20 140/83 97 Room Air MDM Supervised Visit with LIS: Estefanía Mathis Mar 05, 2017 12:40
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
[2017-03-05 13:44] LABS: AUTOMATED NEUTROPHIL # 3.4 TH/MM3 (1.8-7.7); BASOPHIL # 0.1 TH/MM3 (0-0.2); BASOPHIL % 0.9 % (0.0-2.0); EOSINOPHIL % 0.6 % (0.0-4.0); HEMO FLAGS DIFF FINAL; LYMPH % 35.1 % (9.0-44.0); LYMPHOCYTE # 2.3 TH/MM3 (1.0-4.8); MEAN CELL VOLUME 91.2 FL (80.0-100.0); MEAN CORPUSCULAR HEMOGLOBIN 31.8 PG (27.0-34.0); MEAN CORPUSCULAR HGB CONC 34.9 % (32.0-36.0); MONO % 11.9 % (0.0-8.0); NEUT % 51.5 % (16.0-70.0); PLATELET COUNT 273 TH/MM3 (150-450); RED BLOOD COUNT 4.82 MIL/MM3 (4.50-5.90); RED CELL DISTRIBUTION WIDTH 14.3 % (11.6-17.2); WHITE BLOOD COUNT 6.6 TH/MM3 (4.0-11.0)
[2017-03-05 13:58] LABS: ANION GAP 10 MEQ/L (5-15); AST (GOT) 39 U/L (15-37); BICARBONATE 27.3 MEQ/L (21.0-32.0); BLOOD UREA NITROGEN 10 MG/DL (7-18); CHLORIDE 103 MEQ/L (98-107); GLOMERULAR FILTRATION RATE 85 ML/MIN (>89); POTASSIUM 3.7 MEQ/L (3.5-5.1); SODIUM (NA) 140 MEQ/L (136-145)
[2017-03-05 14:01] LABS: ALKALINE PHOSPHATASE 132 U/L (45-117); ALT (GPT) 52 U/L (12-78); CREATINE KINASE 208 U/L (39-308); TOTAL BILIRUBIN ADULT 0.5 MG/DL (0.2-1.0)
[2017-03-05] MEDS ORDERED: LORazepam 2 MG/ML VIAL IV PUSH PRN ×4 (14:15)
[2017-03-05] MEDS ORDERED: FLUMAZENIL 0.5 MG/5 ML VIAL IV PUSH PRN (14:15)
[2017-03-05 14:26] LABS: ACETAMINOPHEN LESS THAN 2.0 MCG/ML (10.0-30.0)
[2017-03-05 14:35] LABS: AMPHETAMINE, URINE NEG (NEG); BARBITURATES, URINE NEG (NEG); COCAINE, URINE NEG (NEG)
[2017-03-05 15:02] VITALS: BP 105/58; PULSE 80; RESP 18; TEMP 97.1; O2SAT 95
[2017-03-05] MEDS: LORazepam 2 MG TAB PO PRN ×3 (15:25→19:50)
[2017-03-05 19:33] VITALS: BP 132/76; PULSE 92; RESP 16
[2017-03-05] MEDS ORDERED: ONDANSETRON ODT 4 MG TAB PO PRN (20:00)
[2017-03-05] MEDS: LORazepam 1 MG TAB PO PRN (22:10)
[2017-03-06 01:00] VITALS: BP 139/72; PULSE 93; RESP 18; O2SAT 96
[2017-03-06 02:37] VITALS: BP 115/64; PULSE 88; RESP 18
[2017-03-06 05:44] VITALS: BP 126/78; PULSE 78; RESP 19; O2SAT 99
[2017-03-06 08:46] VITALS: BP 108/59; PULSE 90; RESP 18; TEMP 96; O2SAT 18; O2SAT 96
[2017-03-06] MEDS: LORazepam 1 MG TAB PO PRN (08:53)
[2017-03-06 10:09] VITALS: BP 106/56; PULSE 90; RESP 18; TEMP 96; O2SAT 18; O2SAT 96
[2017-03-06 11:04] VITALS: BP 106/56; PULSE 90; RESP 18; O2SAT 96
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
== END 2017-03-06 11:42 | disposition home or self-care (01) ==
LOC: NEPD 12:10 → NEPJ 03-06 11:42
DX: F19.14 Other psychoactive substance abuse with psychoactive substance-induced mood disorder (principal); Z87.891 Personal history of nicotine dependence
CPT/HCPCS: 80053; 80307; 82550; 85025; 99285